=== PATIENT | female | born 1940 | race Caucasian/White ===

== ENCOUNTER → 2016-07-27 | Outpatient (CLI) | payer BC ==
[~2016-07-27] MED LIST: ASPCH81X PO; ATOR-22 PO; CALC600T14 PO; CHOL100027 PO; CHROMIUM PICOLINATE; CLON0.5T3 PO; COEN75CA PO; IBUP-1050 PO; MAGNTAB4 PO; METF1000 PO; MULT-506 PO; QUET1TAB30 PO
--- NOTE | 2016-07-27 11:53 | DIAGNOSTIC IMAGING REPORT ---
ULTRASOUND KIDNEYS AND BLADDER CLINICAL HISTORY: Chronic kidney disease. COMPARISON STUDY: Abdominal CT dated 03/13/2012. TECHNIQUE: Real-time, grayscale, and color flow sonography of the kidneys and bladder is performed. Images are reviewed in the transverse and longitudinal planes. FINDINGS: Kidneys: The kidneys are atrophic and echogenic consistent with medical renal disease. The right kidney measures 9.9 x 5.4 x 4.9 cm and the left kidney measures 10.0 x 5.6 x 4.5 cm. There is no hydronephrosis. No shadowing renal calculi are identified. There is no sonographic evidence of contour deforming renal mass lesion. No perinephric fluid is identified. Bladder: The bladder is normal in appearance. Bilateral ureteral jets were seen. IMPRESSION: 1. Findings are consistent with medical renal disease. There is no hydronephrosis. 2. The bladder is normal as imaged. Electronically signed by: Sean Branch M.D. 07/27/2016 11:51 AM Dictated Date/Time: 07/27/2016 11:50 AM
== END | disposition home or self-care (01) ==
LOC: C.ULTR 11:13
PROVIDERS: ATTEND Internal Medicine
DX: N18.9 Chronic kidney disease, unspecified (principal)

== ENCOUNTER → 2016-08-10 | Outpatient (CLI) | payer BC ==
[2016-08-10 15:58] LABS: THYROID STIMULATING HORMONE 1.19 uIu/ml (0.300-4.500)
[2016-08-10 16:22] LABS: RATIO 41.6 mcg/mg (0-30.0)
--- NOTE | 2016-08-17 08:55 | CODING QUERY MEDICAL NECESSITY ---
CQSUPPORTING DIAGNOSIS NEEDED A supporting diagnosis is required for the test/procedure performed on this patient in order for us to be reimbursed by the patient's insurance. Please provide a supporting diagnosis for the following test/procedure listed below next to the test name along with your signature. *If there is no additional diagnosis for this patient that would support the following test/procedure please document that below next to the test/procedure. Test(s)/Procedure(s) that require a supporting diagnosis: DOS 08/10/16 VITAMIN D VITAMIN B12 Provider Signature: Date: Thank you Joleen Renteria Health Information Management Once completed, please kindly fax back to [phone] For questions please call [phone]
== END | disposition home or self-care (01) ==
LOC: C.LAB1850 10:34
PROVIDERS: ATTEND Internal Medicine Endocrinology, Diabetes & Metabolism
DX: E11.8 Type 2 diabetes mellitus with unspecified complications (principal); M15.9 Polyosteoarthritis, unspecified; M85.80 Other specified disorders of bone density and structure, unspecified site; G62.9 Polyneuropathy, unspecified; R53.83 Other fatigue

== ENCOUNTER → 2016-09-06 | Outpatient (CLI) | payer BC ==
--- NOTE | 2016-09-06 13:17 | MAMMOGRAPHY REPORT ---
BILATERAL DIGITAL SCREENING MAMMOGRAM WITH CAD: 09/06/2016 CLINICAL HISTORY: Routine screening. Patient has no complaints. TECHNIQUE: Bilateral CC, MLO and repeat right CC views were obtained. Current study was also evaluat ed with a Computer Aided Detection (CAD) system. COMPARISON: Comparison is made to exams dated: 09/05/2015 mammogram, 08/30/2014 mammogram, 07/18/2013 ma mmogram, 08/29/2012 mammogram, 08/27/2011 mammogram, and 09/01/2010 mammogram - [facility] nter. BREAST COMPOSITION: The tissue of both breasts is almost entirely fatty. FINDINGS: There is stable focal asymmetry in the upper outer middle to posterior right breast, unchan ged on all available prior mammograms dating back to at least 08/31/2007, therefore likely benign. N o new suspicious mass, architectural distortion or cluster of microcalcifications is seen. IMPRESSION: ACR BI-RADS CATEGORY 1: NEGATIVE There is no mammographic evidence of malignancy. A 1 year screening mammogram is recommended. The pa tient will receive written notification of the results. Approximately 10% of breast cancers are not detected with mammography. A negative mammographic report should not delay biopsy if a clinically suggestive mass is present. Brunilda Whitt M.D. ay/:09/06/2016 08:33:39 Note Taker: Stephanie DEE)(M), [facility] letter sent: Normal 1/2 BI-RADS Code: ACR BI-RADS Category 1: Negative
== END | disposition home or self-care (01) ==
LOC: C.MAMM 07:31
PROVIDERS: ATTEND Obstetrics & Gynecology
DX: Z12.31 Encounter for screening mammogram for malignant neoplasm of breast (principal)

== ENCOUNTER → 2016-12-13 | Outpatient (CLI) | payer BC ==
[2016-12-13 11:13] LABS: ESTIMATED AVERAGE GLUCOSE 151 mg/dl; HA1C FLAG Normal (Normal)
[2016-12-13 11:14] LABS: ALT/SGPT 16 U/L (12-78); AST/SGOT 9 U/L (15-37); BLOOD UREA NITROGEN 35 mg/dl (7-18); BUN/CREATININE RATIO 26.9 (10-20); CALCIUM 9.7 mg/dl (8.5-10.1); CARBON DIOXIDE 27 mmol/L (21-32); CHLORIDE 104 mmol/L (98-107); CHOLESTEROL 161 mg/dl (0-200); GLUCOSE 137 mg/dl (70-99); POTASSIUM 3.9 mmol/L (3.5-5.1); SODIUM 139 mmol/L (136-145)
[2016-12-13 11:18] LABS: HDL CHOLESTEROL 79 mg/dl; LDL CHOLESTEROL CALCULATED 62 mg/dl; TRIGLYCERIDES 100 mg/dl (0-150); VERY LOW DENSITY LIPOPROT CALC 20 mg/dl
[2016-12-13 11:32] LABS: RATIO 62.3 mcg/mg (0-30.0)
== END | disposition home or self-care (01) ==
LOC: C.LAB1850 09:21
PROVIDERS: ATTEND Internal Medicine
DX: E78.5 Hyperlipidemia, unspecified (principal); E11.40 Type 2 diabetes mellitus with diabetic neuropathy, unspecified; N18.9 Chronic kidney disease, unspecified

== ENCOUNTER → 2017-03-08 | Outpatient (CLI) | payer BC ==
[2017-03-08 12:26] LABS: URINE APPEARANCE CLEAR (CLEAR); URINE BILIRUBIN NEG (NEG); URINE COLOR DK YELLOW; URINE NITRITE NEG (NEG); URINE SPECIFIC GRAVITY 1.023 (1.000-1.030); UROBILINOGEN NEG (NEG); ZZUR CULT IF INDIC CLEAN CATCH NO
[2017-03-08 12:27] LABS: MANUAL MICROSCOPIC REQUIRED? NO; REVIEW REQ? NO
[2017-03-08 12:35] LABS: BLOOD UREA NITROGEN 30 mg/dl (7-18); BUN/CREATININE RATIO 24.5 (10-20); CALCIUM 9.5 mg/dl (8.5-10.1); CARBON DIOXIDE 25 mmol/L (21-32); CHLORIDE 104 mmol/L (98-107); CREATININE 1.21 mg/dl (0.60-1.20); GLUCOSE 113 mg/dl (70-99); MAGNESIUM 1.6 mg/dl (1.8-2.4); PHOSPHORUS 3.3 mg/dl (2.5-4.9); SODIUM 136 mmol/L (136-145)
[2017-03-08 12:52] LABS: URINE PROTIEN/CREAT RATIO 0.2 (0-0.2); URINE TOTAL PROTEIN 41.5 mg/dl (0-11.9)
== END | disposition home or self-care (01) ==
LOC: C.LAB1850 09:55
PROVIDERS: ATTEND Internal Medicine Nephrology
DX: E11.40 Type 2 diabetes mellitus with diabetic neuropathy, unspecified (principal); E11.22 Type 2 diabetes mellitus with diabetic chronic kidney disease; N18.3 Chronic kidney disease, stage 3 (moderate)

== ENCOUNTER → 2017-07-19 | Outpatient (CLI) | payer BC ==
[2017-07-19 09:34] LABS: BASO % 0.1 %; BASO ABS # 0.01 K/uL (0-0.2); EOS % 0.9 %; EOS ABS # 0.08 K/uL (0-0.5); HEMATOCRIT 38.2 % (37-47); HEMOGLOBIN 13.5 g/dL (12.0-16.0); IG# 0.09 K/uL (0.00-0.02); LYMPH % 25.3 %; LYMPH ABS # 2.19 K/uL (1.2-3.4); MEAN CELL VOLUME 81.1 fL (80-100); MEAN CORPUSCULAR HEMOGLOBIN 28.7 pg (25-34); MEAN CORPUSCULAR HGB CONC 35.3 g/dl (32-36); MEAN PLATELET VOLUME 10.9 fL (7.4-10.4); MONO % 9.1 %; MONO ABS # 0.79 K/uL (0.11-0.59); NEUT % 63.6 %; PLATELET COUNT 360 K/uL (130-400); RED CELL DISTRIBUTION WIDTH CV 14.5 % (11.5-14.5); RED CELL DISTRIBUTION WIDTH SD 43.2 fL (36.4-46.3); WHITE BLOOD COUNT 8.66 K/uL (4.8-10.8)
[2017-07-19 09:44] LABS: HEMOGLOBIN A1C 7.7 % (4.5-5.6)
[2017-07-19 09:46] LABS: ALBUMIN 3.7 gm/dl (3.4-5.0); BLOOD UREA NITROGEN 46 mg/dl (7-18); CALCIUM 9.2 mg/dl (8.5-10.1); CARBON DIOXIDE 24 mmol/L (21-32); CHOLESTEROL 200 mg/dl (0-200); CREATININE 1.32 mg/dl (0.60-1.20); GLUCOSE 197 mg/dl (70-99); PHOSPHORUS 3.3 mg/dl (2.5-4.9); POTASSIUM 4.1 mmol/L (3.5-5.1); SODIUM 135 mmol/L (136-145)
[2017-07-19 09:48] LABS: LDL CHOLESTEROL CALCULATED 86 mg/dl
== END | disposition home or self-care (01) ==
LOC: C.LAB1850 07:47
PROVIDERS: ATTEND Internal Medicine Nephrology
DX: N18.3 Chronic kidney disease, stage 3 (moderate) (principal); E11.8 Type 2 diabetes mellitus with unspecified complications

== ENCOUNTER 2021-12-01 09:07 | Inpatient (IN) ==
--- NOTE | 2021-09-21 12:37 | PAT Medication Instructions ---
Medication Instructions Date of Service September 21, 2021 Home Medications Medication Instructions Recorded BD Ultra-Fine Lisa Pen Needle 32 #200 ea NS 05/14/20 gauge x 5/32" (pen needle, diabetic) flash glucose scanning reader #1 ea 09/08/21 (FreeStyle Tristin 2 [place]) flash glucose sensor (FreeStyle #2 ea 09/08/21 Tristin 2 Sensor) cholecalciferol (vitamin D3) 50 mcg (2,000 unit) tablet 4,000 units PO QAM aspirin 81 mg tablet,delayed release 81 mg PO QPM quetiapine 50 mg tablet 50 - 100 mg PO HS insulin glargine 100 unit/mL (3 mL) subcutaneous pen (Basaglar KwikPen U-100 Insulin) 34 unit SQ QPM mirabegron 25 mg tablet,extended release 24 hr 25 mg PO QPM acetaminophen 500 mg capsule 1,000 mg PO Q6H PRN aluminum hydrox-magnesium carb 160 mg-105 mg chewable tablet (Gaviscon Extra Strength) 2 tab PO BID PRN atorvastatin 40 mg tablet 40 mg PO QPM calcitriol 0.25 mcg capsule 0.25 mcg PO QPM cetirizine 10 mg tablet 10 mg PO HS diclofenac sodium 1 % topical gel 2 gm TOP BID PRN krill [id number]-[id number] 300 mg-90 mg-24 mg-50 mg capsule (krill oil) 1 cap PO QAM liraglutide 0.6 mg/0.1 mL (18 mg/3 mL) subcutaneous pen injector (Victoza 3-Crescencio) 1.8 mg SUBCUT QPM olmesartan 5 mg tablet 5 mg PO QPM STOP taking 2 weeks before surgery krill fud-jm-2-afh-vwi-oqfzwdecljcwv 300 mg-90 mg-24 mg-50 mg capsule (krill oil) 1 cap PO QAM STOP taking 24 hours before surgery diclofenac sodium 1 % topical gel 2 gm TOP BID PRN DO NOT take the morning of surgery cholecalciferol (vitamin D3) 50 mcg (2,000 unit) tablet 4,000 units PO QAM aluminum hydrox-magnesium carb 160 mg-105 mg chewable tablet (Gaviscon Extra Strength) 2 tab PO BID PRN Take morning of surgery With a small sip of water, OTHERWISE NOTHING TO EAT OR DRINK AFTER MIDNIGHT: acetaminophen 500 mg capsule 1,000 mg PO Q6H PRN (if needed) Take evening before surgery aspirin 81 mg tablet,delayed release 81 mg PO QPM (unless surgeon directed otherwise) quetiapine 50 mg tablet 50 - 100 mg PO HS insulin glargine 100 unit/mL (3 mL) subcutaneous pen (Basaglar KwikPen U-100 Insulin) 34 unit SQ QPM mirabegron 25 mg tablet,extended release 24 hr 25 mg PO QPM acetaminophen 500 mg capsule 1,000 mg PO Q6H PRN (if needed) aluminum hydrox-magnesium carb 160 mg-105 mg chewable tablet ([employer] [facility]) 2 tab PO BID PRN (if needed) atorvastatin 40 mg tablet 40 mg PO QPM calcitriol 0.25 mcg capsule 0.25 mcg PO QPM cetirizine 10 mg tablet 10 mg PO HS liraglutide 0.6 mg/0.1 mL (18 mg/3 mL) subcutaneous pen injector (Victoza 3-Crescencio) 1.8 mg SUBCUT QPM olmesartan 5 mg tablet 5 mg PO QPM Other Notes If you have any questions please call us at [phone] or [phone] or [phone] or [phone]
--- NOTE | 2021-09-23 11:05 | Anesthesiology Consultation ---
Date of Service September 23, 2021 Assessment & Plan (1) Encounter for pre-operative examination: - check BSG am DOS. - surgeon ordered medical clearance. - COVID screening: Per assessment on 09/23/2021: Travel screen negative, no known COVID-19 positive contacts or current COVID-19 related symptoms in past 2 weeks. Pt vaccinated. Surgeon arranging preop COVID testing, scheduled 10/02/2021. Awaiting results. Chart Review Chart Review: Pending: Refer to Additional Notes / Consult section and Patient seen in Pre Admission Testing Teaching & Discussion Pre-Anesthesia Teaching/Discussion Notes: Instructed NPO after midnight before surgery, except medications with 15 cc of water. Medication instructions provided according to the PAT guidelines. History Surgery Operation Date: 10/07/21 07:45 Proposed Procedures p L3-S1 Decompression and Fusion, Spinal Cord Monitoring - Peterson Sams, Height/Weight Height: 5 ft 3 in Weight: 96.8 kg Allergies Allergy/AdvReac Type Severity Reaction Status Date / Time celecoxib [From Celebrex] Allergy Severe GI bleeding Verified 09/21/21 10:24 pioglitazone Allergy Unknown UNKNOWN Verified 09/21/21 10:24 Sulfa (Sulfonamide Allergy Unknown RASH Verified 09/21/21 10:24 Antibiotics) lidocaine AdvReac Intermediate Back Verified 09/21/21 10:24 becomes sore procaine [From Novocain] AdvReac Intermediate back Verified 09/21/21 10:24 injection made back pain worse CONTRAST DYE Allergy Severe ANAPHYLAXIS Uncoded 09/21/21 10:24 MICTAL Allergy Unknown RASH Uncoded 09/21/21 10:24 Medications Home Medications Medication Instructions Recorded Confirmed Last Taken cholecalciferol (vitamin D3) 50 4,000 units PO QAM #60 tab 12/18/18 09/21/21 Unknown mcg (2,000 unit) tablet aspirin 81 mg tablet,delayed 81 mg PO QPM 01/22/20 09/21/21 Unknown release quetiapine 50 mg tablet 50 - 100 mg PO HS 05/03/20 09/21/21 Unknown BD Ultra-Fine Lisa Pen Needle 32 #200 ea NS 05/14/20 08/25/21 Unknown gauge x 5/32" (pen needle, diabetic) blood sugar diagnostic (OneTouch 12/22/20 08/25/21 Unknown Verio test strips) insulin glargine 100 unit/mL (3 34 unit SQ QPM ml 06/23/21 09/21/21 Unknown mL) subcutaneous pen (Basaglar KwikPen U-100 Insulin) mirabegron 25 mg tablet,extended 25 mg PO QPM tab 08/17/21 09/21/21 Unknown release 24 hr flash glucose scanning reader #1 ea 09/08/21 09/08/21 Unknown (FreeStyle Tristin 2 [place]) flash glucose sensor (FreeStyle #2 ea 09/08/21 09/08/21 Unknown Tristin 2 Sensor) acetaminophen 500 mg capsule 1,000 mg PO Q6H PRN 09/21/21 09/21/21 Unknown aluminum hydrox-magnesium carb 160 2 tab PO BID PRN 09/21/21 09/21/21 Unknown mg-105 mg chewable tablet (Gaviscon Extra Strength) atorvastatin 40 mg tablet 40 mg PO QPM 09/21/21 09/21/21 Unknown calcitriol 0.25 mcg capsule 0.25 mcg PO QPM 09/21/21 09/21/21 Unknown cetirizine 10 mg tablet 10 mg PO HS 09/21/21 09/21/21 Unknown diclofenac sodium 1 % topical gel 2 gm TOP BID PRN 09/21/21 09/21/21 Unknown krill 1 cap PO QAM 09/21/21 09/21/21 Unknown lfw-nr-2-alj-ncd-bqjnoohxftcrw 300 mg-90 mg-24 mg-50 mg capsule (krill oil) liraglutide 0.6 mg/0.1 mL (18 mg/3 1.8 mg SUBCUT QPM 09/21/21 09/21/21 Unknown mL) subcutaneous pen injector (Victoza 3-Crescencio) olmesartan 5 mg tablet 5 mg PO QPM 09/21/21 09/21/21 Unknown Past Medical History Medical History (Updated 09/23/21 @ 11:37 by Jenny Hines PA-C) Bipolar 1 disorder Chronic back pain Chronic interstitial cystitis Chronic kidney disease (CKD), stage III (moderate) following with [facility] 08/25/21 Degenerative disc disease Diabetes type 2, controlled IDDM Diabetic nephropathy associated with type 2 diabetes mellitus GERD (gastroesophageal reflux disease) controlled, stable per pt History of anesthesia reaction long time to awaken. no ventilator needed. Hyperlipidemia Hypertension controlled, stable per pt IBS (irritable bowel syndrome) pt denies L[place] Rheumatoid arthritis Spinal stenosis Patient denies h/o stroke, seizures, heart attack, heart failure, blood clots or blood transfusions. Exercise / Class Metabolic Activity II 4-5 Yardwork/Stairs/Walk up hill (ambulates with cane, SOB with 1 FOS d/t pain per pt otherwise denies SOB; denies chest discomfort) Past Family History Family History Mother Diabetes Breast cancer Father Myocardial infarction Coronary arteriosclerosis Sister Diabetes Uncle Skin cancer maternal Grandfather FHx: stroke Other Heart disease Denies family history of Colon cancer Ovarian cancer Prostate cancer Past Surgical History Surgical History H/O arthroscopy of left knee H/O laparoscopy exploratory History of ankle surgery ORIF right ankle History of cystoscopy History of esophagogastroduodenoscopy (EGD) S/P cataract surgery bilateral S/P colonoscopy 06/15/04, good for 10 years S/P epidural steroid injection "made the back pain worse" S/P repair of paraesophageal hernia Past Anesthesia History No Family Hx of Anesthesia Complications and Other (slow to wake up, denies re- intubation or unanticipated/extended hospitalization) History of PONV No Hx of PONV and No Hx of Motion Sickness Social History Smoking Status: Never smoker Do You Dip or Chew Tobacco: No Hx Alcohol Use: Yes Alcohol type: beer alcohol intake frequency: holidays/special occasions only Hx Substance Use: Yes (quit medical marijuana none since 2018) substance use type: marijuana Substance Use Type Other:: medical marijuana Last Used Substance Other:: 2019 Review of Systems Snoring, denies witnessed apneas. Patient denies chest pain, fever, chills, cough, wheezing, or palpitations. Physical Exam Vital Signs Vitals BP 126/80 P 72 TEMP 98.6 SP02 96% on RA RESP 17 Physical Full cervical extension range of motion without pain TMD 3.5 finger breaths Mallampati Score 3 Dentition: intact, several caps/crowns-none in front; denies missing, chipped or loose teeth, implants or bridges Lungs: normal respiratory effort. Clear throughout to auscultation, no adventitious breath sounds Cardiac: regular rate and rhythm, no murmurs noted Carotid arteries: negative bruit bilat Lab Results Anesthesia Preop Results Results Anesthesia Widget: WBC 6.95 K/uL (4.8-10.8) 09/23/21 Hgb 11.9 g/dL (12.0-16.0) L 09/23/21 Hct 37.1 % (37-47) 09/23/21 Plt 371 K/uL (130-400) 09/23/21 Na 141 mmol/L (136-145) 09/23/21 K 4.1 mmol/L (3.5-5.1) 09/23/21 Cl 113 mmol/L (98-107) H 09/23/21 CO2 21 mmol/L (21-32) 09/23/21 BUN 34 mg/dl (6-23) H 09/23/21 Creat 1.39 mg/dl (0.6-1.2) H 09/23/21 Glucose Level 177 mg/dl (70-99(Fasting)) H 09/23/21 PT 10.9 Seconds (9.0-12.0) 09/23/21 PTT 25.1 Seconds (21.0-31.0) 09/23/21 INR 1.0 (0.9-1.1) 09/23/21 HA1c 7.2 % (4.5-5.6) H 09/23/21 Urine Color Yellow 09/23/21 Urine Appearance Cloudy (Clear) A 09/23/21 Urine pH 5.0 (4.5-7.5) 09/23/21 Urine Specific [place] 1.032 (1.000-1.030) H 09/23/21 Urine Protein 2+ (Negative) H 09/23/21 Urine Glucose (UA) Negative (Negative) 09/23/21 Urine Ketones Trace (Negative) H 09/23/21 Urine Blood Negative (Negative) 09/23/21 Urine Nitrite Negative (Negative) 09/23/21 Urine Bilirubin Negative (Negative) 09/23/21 Urine Urobilinogen Negative (Negative) 09/23/21 Urine Leukocyte Esterase Trace (Negative) H 09/23/21 Urine WBC (Auto) 10-30 /hpf (0-5) H 09/23/21 Urine RBC (Auto) 0-4 /hpf (0-4) 09/23/21 Urine Hyaline Casts (Auto) 10-30 /lpf (0-5) H 09/23/21 Urine Epithelial Cells (Auto) >30 /lpf (0-5) H 09/23/21 Urine Bacteria (Auto) Negative (Negative) 09/23/21 Blood Type A Negative 09/23/21 Antibody Screen NEGATIVE 09/23/21 Testing Electrocardiogram Date: 09/23/21 NSR, rate 67 bpm Left anterior fascicular block Chest X-Ray Date: 09/23/21 No lines and tubes are seen. The cardiomediastinal silhouette is normal. The lungs are clear. No evidence of pleural effusion or pneumothorax. Degenerative changes are seen in the thoracic spine. IMPRESSION: No acute chest disease. Cervical Spine Date: 09/23/21 x-ray No fractures or subluxations are identified. Vertebral body heights and disc spaces are well maintained. The alignment is anatomic Prevertebral soft tissues are within normal limits. IMPRESSION: Degenerative changes without evidence of acute abnormality
[~2021-12-01 09:07] MED LIST changes: +ACETAMINOPHEN 500 MG TAB PO SCH; -ASPCH81X PO; -ATOR-22 PO; -CALC600T14 PO; -CHOL100027 PO; -CHROMIUM PICOLINATE; -CLON0.5T3 PO; -COEN75CA PO; +CeleBREX 200 MG CAP PO SCH; +GABAPENTIN 300 MG CAP PO SCH; -IBUP-1050 PO; +LR 15ML/HR IV SCH; -MAGNTAB4 PO; -METF1000 PO; -MULT-506 PO; -QUET1TAB30 PO; +ceFAZolin 2000MG 2,000 MG/15 ML SYR IV SCH
[2021-12-01] MEDS ORDERED: ROCURONIUM BROMIDE 10 MG/ML 5 ML VIAL IV ONE (10:01)
[2021-12-01] MEDS ORDERED: LIDOCAINE 2% 20 MG/ML 5 ML SYR IV ONE (10:01)
[2021-12-01] MEDS ORDERED: PROPOFOL IV EMULSION 10 MG/ML 20 ML VIAL IV ONE (10:01)
[2021-12-01] MEDS ORDERED: fentaNYL citrate 100 MCG/2 ML VIAL ONE (10:01)
[2021-12-01] MEDS ORDERED: MIDAZOLAM HCL 1 MG/ML 2ML VIAL ONE (10:01)
[2021-12-01] MEDS ORDERED: HYDROmorphone INJ 1 MG/ML SYRINGE IV PRN (10:08)
[2021-12-01] MEDS ORDERED: ATROPINE SULFATE 0.1 MG/ML 10ML SYR IV PRN (10:08)
[2021-12-01] MEDS ORDERED: ePHEDrine sulfate 50 MG/ML AMP IV PRN (10:08)
[2021-12-01] MEDS ORDERED: ONDANSETRON INJ 2 MG/ML 2 ML VIAL IV PRN ×2 (10:08→15:14)
--- NOTE | 2021-12-01 10:16 | Discharge Summary ---
Date of Service December 01, 2021 Principal Diagnosis Lumbar spinal stenosis with neurogenic claudication Discharge Data Allergies Allergy/AdvReac Type Severity Reaction Status Date / Time celecoxib [From Celebrex] Allergy Severe GI bleeding Verified 11/26/21 16:35 Iodinated Contrast Media Allergy Severe Anaphylaxis Verified 11/26/21 16:35 lamotrigine [From Lamictal] Allergy Intermediate Rash Verified 12/01/21 09:31 Sulfa (Sulfonamide Allergy Mild RASH Verified 11/26/21 16:35 Antibiotics) pioglitazone Allergy Unknown UNKNOWN Verified 11/26/21 16:35 lidocaine AdvReac Intermediate Back Verified 11/26/21 16:35 becomes sore procaine [From Novocain] AdvReac Intermediate back Verified 11/26/21 16:35 injection made back pain worse Procedures Performed Operation Date: 10/21/21 07:45 <No data on this case meets the specified criteria> Operation Date: 12/01/21 10:35 <No data on this case meets the specified criteria> Ordered Studies 12/01/21 10:35 FL lumbar spine 2-3V Routine Hospital Course (1) Neurogenic claudication due to lumbar spinal stenosis: Patient went multilevel lumbar decompression fusion tolerated this well was taken to orthopedic for possibly. Postop day 1 she was progressing slowly but did begin transfers she had difficulty with postop day #2 and 3 and 4. She had incident of left foot pain secondary to a strain. We did attempt to have her admitted to rehab but insurance would not allow this. Ultimately she was accepted at a local [facility]. Day of discharge strength is intact pain was controlled. Subsequently discharged to residential facility. Total Time Total Time Spent Total Time Spent (In Minutes): 20 minutes Discharge Plan Discharge Items Patient Disposition: Transfer Snf Fac Reason For Visit: Spinal Stenosis, Cervical Region Discharge Diagnosis: Lumbar spinal stenosis with neurogenic claudication Activity: As commented below Non-emergency contact: Primary Care Provider Call non-emergency contact if: you have any medication questions Follow-up/Referrals: Jerry Persaud MD [Primary Care Provider] - Diet: Regular Addtl Attending Provider Instructions: ACTIVITY RECOMMENDATIONS: SELF CARE INSTRUCTIONS AFTER THORACIC/LUMBAR FUSIONS 1. You may walk to your tolerance. It is good exercise for your legs and back. Expect some back and intermittent leg aches and pains. 2. You may perform "counter-top" level activities (make a sandwich, shelli with a project, etc.). 3. No bending or lifting of more than 10 pounds or back twisting of any nature (roll like a log when turning in bed). 4. You may ride in a car for 20-30 minutes at a time. No driving until after your first visit with your doctor. 5. Frequent changes of position and restricting sitting to 30 minutes at a time will help limit the amount of back spasms and stiffness you may experience. 6. You may discontinue the use of ambulatory aids (cane, crutches, etc.) once your strength and confidence allow. 7. You may plumbing assembler installer the shower and let water strike your incision when you arrive home at least once daily. Do not take a tub bath, sit in a hot tub or go into a swimming pool until after your first recheck in the office. SPECIAL CARE INSTRUCTIONS: VERY IMPORTANT TO READ AND REVIEW A. Your surgical incision has been closed with a cosmetic suture under the skin that will dissolve in about 6 weeks. In 14 days, you can use a pair of clean scissors and cut the suture that is left outside of the skin at the ends of your incision. 1. The small skin tapes can be removed 7 days after surgery if they have not fallen off by that point. 2. You may keep the wound open to air as much as possible to promote healing after post-op day number 5 unless told otherwise by your doctor. 3. If you think the wound looks like it is becoming infected (redness or worsening drainage) and/or you are experiencing fever, chill or worsening back pain and muscle spasms, contact the office so that we may evaluate you as soon as possible. B. Complications are uncommon, but please contact us if you have any signs or symptoms of: 1. wound infection (fever higher than 102.5 degrees F, redness, separation of wound, drainage, or increasing pain from the incision) 2. blood clots in legs (pain, swelling, redness and warmth in legs) 3. urinary tract infection (fever higher than 102.5 degrees F, burning upon urination or increased frequency of urination) 4. nerve problems (inability to walk on your toes or heels, numbness, loss of bowel or bladder control) 5. any other symptoms that concern you C. Please call the office at if you have any concerns or questions about your operation or recovery. D. No smoking! Smoking drastically decreases the chance of a solid fusion. E. Do not take any anti-inflammatory medications (Indocin, Advil, Motrin, Aspirin, Naprosyn, etc.) as these may inhibit the chance of a solid fusion. Tylenol is okay to take for pain. MANAGING PAIN AFTER SPINAL SURGERY 1. Narcotic medication is intended for short-term use and will be provided for surgical pain. Surgical pain usually lasts for a period of 4-6 weeks. Narcotic medication includes Percocet, Vicodin, Darvocet, Tylenol #3 or Lortab. 2. Longer-term pain is more appropriately treated with non-narcotic medication such as Tylenol ES. 3. Muscle spasm is not appropriately treated with narcotics. Muscle relaxers such as Soma, Flexeril or Skelaxin can be used along with Tylenol ES. 4. Remember that we all live with some "aches and pains". This is not unusual or uncommon after an injury or as we get older. a. Back pain is expected and may include muscle spasms for 4 to 6 weeks after surgery. The pain should gradually improve. If the pain worsens for no apparent reason, please contact the office. b. Intermittent leg pain may also be experienced and should not be concerned about unless it worsens for no apparent reason. If so, please contact the office. 5. We will provide appropriate medication within the normal guidelines of their prescribed use. We will also be very cautious and aware of potential abuse and extended duration of patients' medication needs. a. Pain medications are for your comfort and to assist with sleep and rest so that the tissue can heal. They are not provided in order to return to normal activity and should not be used through the day. To do so or worsening pain at night can result from ongoing tissue damage and development of tolerance to the prescribed medicine. 6. Please allow 2-3 days to process refills. Prescriptions will not be mailed but must be picked up at the office. FOLLOW UP VISIT: Keep your scheduled follow-up appointment. Any questions, please call the office at . Pending Studies at Discharge: No Stand-Alone Forms: My [facility] Skilled Items Patient informed of condition?: Yes DNR: No Discharge Level of Care: Acute rehab Communicable Disease: No Discharge Prognosis: Improving Lines: None Urinary Catheter: No Medications and DC Order Prescriptions: New tramadol 50 mg tablet 50 mg PO Q6H PRN (Reason: pain, moderate) Qty: 30 0RF oxycodone 5 mg tablet 5 mg PO Q6H PRN (Reason: pain, severe) Qty: 30 0RF Continued (DME) pen needle, diabetic [BD Ultra-Fine Lisa Pen Needle] 32 gauge x 5/32" needle See Rx Instructions .ROUTE .MEDSUPPLY Qty: 200 3RF Rx Instructions: Use 2 per day as directed insulin glargine [Basaglar KwikPen U-100 Insulin] 100 unit/mL (3 mL) insulin pen 20 unit SQ QPM Qty: 15 5RF cholecalciferol (vitamin D3) 2,000 unit tablet 4,000 units PO QAM Qty: 60 (DME) OneTouch Verio test strips Strip See Rx Instructions .Route Rx Instructions: Test blood sugar once daily insulin aspart (niacinamide) [Fiasp FlexTouch U-100 Insulin] 100 unit/mL (3 mL) insulin pen 1 unit subcut UD PRN (Reason: Hyperglycemia) 0RF aspirin 81 mg tablet,delayed release (DR/EC) 81 mg PO QPM (DME) FreeStyle Tristin 2 [place] Misc See Rx Instructions .MEDSUPPLY Qty: 1 0RF Rx Instructions: As directed (DME) FreeStyle Tristin 2 Sensor Kit See Rx Instructions .MEDSUPPLY Qty: 2 11RF Rx Instructions: As directed mirabegron 25 mg tablet extended release 24 hr 25 mg PO QPM quetiapine 50 mg tablet 50 - 100 mg PO HS calcitriol 0.25 mcg capsule 0.25 mcg PO QPM olmesartan 5 mg tablet 5 mg PO QPM diclofenac sodium 1 % gel 2 gm TOP BID PRN (Reason: Pain) Rx Instructions: apply to single elbow, wrist or hand; for hand includes palm/fingers/back of hand Victoza 3-Crescencio 0.6 mg/0.1 mL (18 mg/3 mL) pen injector 1.8 mg subcut QPM [id number]-kupqu-2-[id number]-hez-jeheix [krill oil] 159-66-80-50 mg capsule 1 cap PO QAM acetaminophen 500 mg Capsule 1,000 mg PO Q6H PRN (Reason: Pain) Gaviscon Extra Strength 160-105 mg Tablet,Chewable 2 tab PO BID PRN (Reason: Heartburn) cetirizine 10 mg Tablet 10 mg PO HS atorvastatin 40 mg tablet 20 mg PO QPM Discharge Orders: Discharge Order (Routine); Ordered 12/11/21 Ordered By: Peterson Sams Admission Data Admit Date/Time: 12/01/21 13:25 Attending Provider: Peterson Sams Admit Provider: Peterson Sams Primary Care Provider: Jerry Persaud Other Providers: Dudley Stark ; Sue Woods [facility] ; [facility] ; [place] ; [facility] Other Interventions: Discharge Summary Assessment (RN) Last Done: 12/11/21 09:45
--- NOTE | 2021-12-01 10:16 | History & Physical Bridge Note ---
Date of Service December 01, 2021 History & Physical Bridge Note I have examined the patient, reviewed the History & Physical and in the interval since the performance of the History & Physical I have noted the following changes of clinical significance: no changes noted
--- NOTE | 2021-12-01 10:17 | History & Physical Report ---
Date of Service December 01, 2021 Assessment & Plan (1) Neurogenic claudication due to lumbar spinal stenosis: Plan: Lumbar decompression and fusion L3-S1 History of Present Illness Chief Complaint: Back and leg pain Primary Care Provider: Jerry Persaud MD This is an 81-year-old female who presents with chronic persistent back and leg pain. Failed course of nonoperative care she is here for surgical invention. Allergies Allergy/AdvReac Type Severity Reaction Status Date / Time celecoxib [From Celebrex] Allergy Severe GI bleeding Verified 11/26/21 16:35 Iodinated Contrast Media Allergy Severe Anaphylaxis Verified 11/26/21 16:35 lamotrigine [From Lamictal] Allergy Intermediate Rash Verified 12/01/21 09:31 Sulfa (Sulfonamide Allergy Mild RASH Verified 11/26/21 16:35 Antibiotics) pioglitazone Allergy Unknown UNKNOWN Verified 11/26/21 16:35 lidocaine AdvReac Intermediate Back Verified 11/26/21 16:35 becomes sore procaine [From Novocain] AdvReac Intermediate back Verified 11/26/21 16:35 injection made back pain worse Home Medications Medication Instructions Recorded Confirmed Type cholecalciferol (vitamin D3) 50 4,000 units PO QAM #60 tabs 12/18/18 12/01/21 History mcg (2,000 unit) tablet aspirin 81 mg tablet,delayed 81 mg PO QPM 01/22/20 12/01/21 History release quetiapine 50 mg tablet 50 - 100 mg PO HS 05/03/20 12/01/21 History BD Ultra-Fine Lisa Pen Needle 32 #200 ea 05/14/20 10/16/21 Rx gauge x 5/32" (pen needle, diabetic) blood sugar diagnostic (OneTouch 12/22/20 10/16/21 History Verio test strips) insulin glargine 100 unit/mL (3 34 unit subcut QPM 06/23/21 12/01/21 History mL) subcutaneous pen (Basaglar KwikPen U-100 Insulin) mirabegron 25 mg tablet,extended 25 mg PO QPM 08/17/21 12/01/21 History release 24 hr flash glucose scanning reader #1 ea 09/08/21 10/16/21 Rx (FreeStyle Tristin 2 Drain) flash glucose sensor (FreeStyle #2 ea 09/08/21 10/16/21 Rx Tristin 2 Sensor kit) acetaminophen 500 mg capsule 1,000 mg PO Q6H PRN Pain 09/21/21 12/01/21 History aluminum hydrox-magnesium carb 160 2 tab PO BID PRN Heartburn 09/21/21 12/01/21 History mg-105 mg chewable tablet (Gaviscon Extra Strength) calcitriol 0.25 mcg capsule 0.25 mcg PO QPM 09/21/21 12/01/21 History cetirizine 10 mg tablet 10 mg PO HS 09/21/21 12/01/21 History diclofenac sodium 1 % topical gel 2 gm topical BID PRN Pain 09/21/21 12/01/21 History krill 1 cap PO QAM 09/21/21 12/01/21 History [id number] 300 mg-90 mg-24 mg-50 mg capsule (krill oil) liraglutide 0.6 mg/0.1 mL (18 mg/3 1.8 mg subcut QPM 09/21/21 12/01/21 History mL) subcutaneous pen injector (Victoza 3-Crescencio) olmesartan 5 mg tablet 5 mg PO QPM 09/21/21 12/01/21 History atorvastatin 40 mg tablet 20 mg PO QPM 10/16/21 12/01/21 History Past Med/Surg History Medical History (Updated 12/01/21 @ 10:17 by Peterson Sams DO) Bipolar 1 disorder Chronic back pain Chronic interstitial cystitis Chronic kidney disease (CKD), stage III (moderate) following with [place] neph[facility] 08/25/21 Degenerative disc disease Diabetes type 2, controlled IDDM Diabetic nephropathy associated with type 2 diabetes mellitus GERD (gastroesophageal reflux disease) controlled, stable per pt History of anesthesia reaction long time to awaken. no ventilator needed. Hyperlipidemia Hypertension controlled, stable per pt IBS (irritable bowel syndrome) pt denies Lentigo Rheumatoid arthritis Spinal stenosis Surgical History H/O arthroscopy of left knee H/O laparoscopy exploratory History of ankle surgery ORIF right ankle History of cystoscopy History of esophagogastroduodenoscopy (EGD) S/P cataract surgery bilateral S/P colonoscopy 06/15/04, good for 10 years S/P epidural steroid injection "made the back pain worse" S/P repair of paraesophageal hernia Family History Mother Diabetes Breast cancer Father Myocardial infarction Coronary arteriosclerosis Sister Diabetes Uncle Skin cancer maternal Grandfather FHx: stroke Other Heart disease Denies family history of Colon cancer Ovarian cancer Prostate cancer Social History Smoking Status: Never smoker Second Hand Exposure: No; Do You Dip or Chew Tobacco: No; Tobacco Cessation Education Requested by Patient: No Hx Alcohol Use: Yes Alcohol type: beer Hx Substance Use: No (hx of medical marijuana use (none since 2019)) Preferred Language: Cameroonian Communication Ability: Effective Visual Impairment: No Limitations Hearing Ability: Normal Dairy Grazer Required: No Beliefs That Will Affect Care: Worship Worship Beliefs: methodist and baptism and Spiritual marital status: Current Living Situation: Spouse current occupational status: retired current occupation: Therapist Other Information That Helps Us Care for You: No other: N/A Feels Safe at Home: Yes Safety Concerns: Feels Safe At This Time Childhood Exposure to Second-Hand Smoke: No Dental Care, Regularly: Yes Seatbelt Use: always Sunscreen Use: Yes Assistive Devices: Cane and Walker Physical Exam Physical Exam: Patient is alert and oriented Heart regular rhythm Lungs clear Results & Data Results & Data ([facility]) Vital Signs (Past 12 Hours) Vital Signs Temp Pulse Resp BP Pulse Ox O2 Del Method 12/01/21 09:41 36.9 C 77 20 173/98 H 97 Room Air 12/01/21 09:41 Room Air
[2021-12-01] MEDS ORDERED: BUPIVACAINE/EPINEPHRINE 0.25% 1:200,000 30 ML VIAL ONE (10:35)
[2021-12-01] MEDS ORDERED: ceFAZolin 330 MG/ML 1 GM VIAL ONE (10:36)
[2021-12-01] MEDS ORDERED: KETAMINE 50 MG/5 ML SYRINGE ONE (11:17)
[2021-12-01] MEDS ORDERED: GLYCOPYRROLATE 0.2 MG/ML VIAL ONE (11:55)
[2021-12-01] MEDS ORDERED: DEXAMETHASONE SOD INJ 4 MG/ML VIAL ONE (11:55)
[2021-12-01] MEDS ORDERED: NEOSTIGMINE METHYLSULFATE 1 MG/ML 10ML VIAL ONE (11:55)
[2021-12-01] MEDS ORDERED: ONDANSETRON INJ 2 MG/ML 2 ML VIAL ONE (11:55)
[2021-12-01] MEDS ORDERED: FLOSEAL HEMOSTATIC MATRIX 10ML TOP ONE (13:12)
--- NOTE | 2021-12-01 13:21 | Operative Report ---
Post Operative Report Pre & Post Diagnosis Operation Date: 10/21/21 07:45 <No data on this case meets the specified criteria> Operation Date: 12/01/21 10:35 Pre-Op Diagnosis: Neurogenic Claudication due to Lumbar Spinal Stenosis L3-S1 Post-Op Diagnosis: Neurogenic Claudication due to Lumbar Spinal Stenosis L3-S1 I identified the patient and participated in the time-out.: Yes Procedure Operation Date: 10/21/21 07:45 <No data on this case meets the specified criteria> Operation Date: 12/01/21 10:35 Actual Procedures #1 lumbar decompression with bilateral medial facetectomies and foraminotomies L2-L3, L3-L4, L4-5 and L5-S1. #2 posterior spinal fusion L3-S1. #3 placement p osterior segmental instrumentation L3-S1. #4 interbody fusion L4-5 L5-S1. #5 placement of Spira 11 x 26 mm cage at L4-L5 and L5-S1. #6 placement locally harvested morselized autograft in the posterior gutters. #7 placement of I factor model V toss in the interbody space and posterior gutters. Surgeon Peterson Sams, DO Reactor Technician Filomena Hoffmann Estimated Blood Loss 150 Findings See Below Patient is 5 foot 3 inches tall weighing over 96 kg with a BMI in excess of 37. The patient's body habitus did contribute to significant technical difficulty requiring her deepest retractors longus instruments in order to perform procedure. This had at least 50% increased operative time. Specimens None Indications This is a 81-year-old female well-known to me the presents with above-mentioned diagnosis after failing course of nonoperative care is here for surgical invention. Description of Procedure Patient was met with identified informed consent obtained. Patient was then taken to the operative suite underwent ablation placed in a prone position on the Devendra table atop the Nils frame. All bony prominences well-padded eyes inspected to ensure no external pressure placed upon the. This point the lumbar spine was prepped and draped in normal sterile fashion. Sharp dissection with assistance of Bovie cautery was performed down to and exposing the lamina transverse processes of L2-3 L4-L5 and the sacral ala bilaterally. From caudal to cephalad fashion complete laminectomy of L5 L4 L3 and L4 to was performed including bilateral medial facetectomies and foraminotomies addressing severe spinal stenosis. Pedicle screws were then placed in L3-L4-L5 and S1 levels bilaterally with assistance of fluoroscopy and appropriately sized brandin placed. By way of a transforaminal portion right complete discectomy of L5-S1 was performed endplates curetted to subcortical bleeding bone and a 11 x 26 mm spiral cage filled I factor tapped the position. Then proceeded L4-L5 and again by way of a transforaminal approach on the right complete discectomy performed endplates curetted to subcortically bone and 11 x 26 mm spiral cage filled I factor tapped in position. The rods were then compressed and locked in final position bilaterally. The transverse processes of L3-L4-L5 and sacral ala burre d to subcortical bleeding bone. I factor combined with V toss and locally harvested morselized autograft was placed in the posterior gutters. 15 round SELMA drain inserted. The incision was then closed with 1 Vicryl in the fascia 2-0 Vicryl subcutaneously and 4 Monocryl for final skin closure. Steri-Strip sterile dressings placed. Patient waken taken PACU stable condition. Please note spinal cord monitoring was utilized at the procedure no changes noted. Lastly Filomena Hoffmann was present throughout the entire procedure and all the patient positioning complex portions of the surgery and final skin closure. I attest to the content of the Intraoperative Record and any orders documented therein. Any exceptions are noted below.
[2021-12-01] MEDS: fentaNYL citrate 100 MCG/2 ML VIAL IV PRN ×4 (13:57→14:14)
--- NOTE | 2021-12-01 14:01 | Fluoroscopy Report ---
FL lumbar spine 2-3V CLINICAL HISTORY: L3-S1 DECOMPRESSION AND FUSION COMPARISON STUDY: None. FLUOROSCOPY TIME: 29 seconds. FINDINGS: 2 fluoroscopic spot images of the lumbar spine demonstrate posterior decompression and fusi on from L3 through S1 with pedicle screws and rods. There are disc spacers at L3-L4 and L4-5 which ap pear in good position. IMPRESSION: Fluoroscopic assistance provided for L3-S1 posterior decompression and fusion. ACT 112: Negative or not required by law. Electronically signed by: Jaswant Coyle M.D. 12/01/2021 2:00 PM
--- NOTE | 2021-12-01 14:11 | Anesthesiology Progress Note ---
Date of Service December 01, 2021 Anesthesia Post Procedure Vital Signs Vital Signs: Temp Pulse Pulse Resp BP Pulse Ox O2 Del Method 12/01/21 13:55 62 16 165/64 H 96 Oxymask 12/01/21 13:46 71 18 165/83 H 97 Oxymask 12/01/21 13:39 36.7 C 78 19 180/105 H 96 Oxymask 12/01/21 09:41 36.9 C 77 20 173/98 H 97 Room Air 12/01/21 09:41 Room Air O2 Flow Rate 12/01/21 13:55 5 12/01/21 13:46 5 12/01/21 13:39 5 12/01/21 09:41 12/01/21 09:41 Pain Intensity Back: Pain Intensity: 6 Transfer of Care Handoff Completed per policy Notes Mental Status: alert / awake / arousable and participated in evaluation Patient Amnestic to Procedure: Yes Nausea / Vomiting: adequately controlled Pain: adequately controlled Airway Patency, RR, SpO2: stable & adequate BP & HR: stable & adequate Hydration State: stable & adequate Anesthetic Complications: no major complications apparent and Pt Satisfied with anesthetic care
[2021-12-01] MEDS ORDERED: PHARMACY GLYCEMIC MGMT CONSULT PRN (15:14)
[2021-12-01] MEDS ORDERED: SOD PHOSPHATE/SOD BIPHOSPHATE ENEMA 132 ML BTL PR PRN (15:14)
[2021-12-01] MEDS ORDERED: ACETAMINOPHEN 1,000 MG/100 ML VIAL IV PRN (15:14)
[2021-12-01] MEDS ORDERED: LORazepam 0.5 MG in SYRINGE 0.25 ML IV PRN (15:14)
[2021-12-01] MEDS ORDERED: FAMOTIDINE 20 MG TAB PO PRN (15:14)
[2021-12-01] MEDS ORDERED: PROMETHAZINE HCL 12.5 MG in SODIUM CHLORIDE 0.9% 50 ML IV PRN (15:14)
[2021-12-01] MEDS ORDERED: LORazepam 0.5 MG TAB PO PRN (15:14)
[2021-12-01] MEDS ORDERED: MAGNESIUM HYDROXIDE SUSP 30 ML UDC PO PRN (15:14)
[2021-12-01] MEDS ORDERED: bisacodyL 10 MG SUPP PR PRN (15:14)
[2021-12-01] MEDS ORDERED: HYDROmorphone INJ 0.5 MG/0.5 ML SYR IV PRN (15:14)
[2021-12-01] MEDS ORDERED: hydrOXYzine HCl 25 MG TAB PO PRN (15:14)
[2021-12-01] MEDS ORDERED: METOCLOPRAMIDE HCL INJ 5 MG/ML 2 ML VIAL IV PRN (15:14)
[2021-12-01] MEDS ORDERED: diphenhydrAMINE Capsule 25 MG CAP PO PRN (15:14)
[2021-12-01] MEDS ORDERED: NALOXONE HCL 0.4 MG/1 ML VIAL/CARP IV PRN (15:14)
[2021-12-01] MEDS ORDERED: traMADol HCL 50 MG TABLET PO PRN (15:14)
[2021-12-01] MEDS ORDERED: ONDANSETRON 4 MG OD TAB PO PRN (15:14)
[2021-12-01] MEDS: SODIUM CHLORIDE 0.9% 1000ML 1,000 ML IV SCH (15:24)
--- NOTE | 2021-12-01 15:42 | Consultation ---
Date of Consultation December 01, 2021 Assessment & Plan (1) Neurogenic claudication due to lumbar spinal stenosis: s/p lumbar decompression-fusion procedure by Dr Sams today. details - #1 lumbar decompression with bilateral medial facetectomies and foraminotomies L2-L3, L3-L4, L4-5 and L5-S1. #2 posterior spinal fusion L3-S1. #3 placement posterior segmental instrumentation L3-S1. #4 interbody fusion L4-5 L5-S1. #5 placement of Spira 11 x 26 mm cage at L4-L5 and L5-S1. #6 placement locally harvested morselized autograft in the posterior gutters. #7 placement of I factor model V toss in the interbody space and posterior gutters. EBL ~150cc per the op note. Defer pain management, IV fluids, disposition to Dr Sams's team. (2) Hyperlipidemia: continue lipitor 20mg daily (3) Hypertension: would HOLD ARB until AM labs return tomorrow post-op BPs are stable at this time, however (4) Type 2 diabetes mellitus, with long-term current use of insulin: primary orthopedic team has consulted the Pharmacy glycemic team for management defer Rx to them a1c noted from 09/2021 (5) Bipolar 1 disorder: cont seroquel nightly appears to be under control at this time (6) Chronic kidney disease (CKD), stage III (moderate): baseline Creatinine is 1.3 to 1.4 BMP in am for stability hold ARB until that time (7) Chronic interstitial cystitis: cont mirabegron daily (8) Rheumatoid arthritis: listed per the chart, but it does not appear she is on any chronic meds for such will clarify the diagnosis with patient during my next visit with her Plan DVT proph - SCDS; chemical means contraindicated due to spinal surgery Mild abd bloating/discomfort - serial exams, watch for development of ileus. updated at bedside. Thank you for this consult. Will follow with you. History of Present Illness Requesting Physician: Rony Sams DO Reason for Consultation: post-op medical management Attending Physician: Peterson Sams DO History of Present Illness 81yo female with history of bipolar disorder, T2DM on complex insulin regimen, hyperlipidemia, and chronic low back pain for at least 1 year presented today for elective lumbar decompression/fusion procedure by Dr Sams. I saw her post-op on the orthopedic floor and she was resting comfortably except for c/o dry mouth, back pain, and mild abdominal discomfort. She denies having had any GI symptoms prior to her operation. Denies any current nausea or emesis. Denies LE paresthesias. She does request pain meds for the back. Patient reports most BSGs at home have been <200 of late. She follows with the [facility] for her DM. Allergies Allergy/AdvReac Type Severity Reaction Status Date / Time celecoxib [From Celebrex] Allergy Severe GI bleeding Verified 11/26/21 16:35 Iodinated Contrast Media Allergy Severe Anaphylaxis Verified 11/26/21 16:35 lamotrigine [From Lamictal] Allergy Intermediate Rash Verified 12/01/21 09:31 Sulfa (Sulfonamide Allergy Mild RASH Verified 11/26/21 16:35 Antibiotics) pioglitazone Allergy Unknown UNKNOWN Verified 11/26/21 16:35 lidocaine AdvReac Intermediate Back Verified 11/26/21 16:35 becomes sore procaine [From Novocain] AdvReac Intermediate back Verified 11/26/21 16:35 injection made back pain worse Home Medications Medication Instructions Recorded Confirmed Type cholecalciferol (vitamin D3) 50 4,000 units PO QAM #60 tabs 12/18/18 12/01/21 History mcg (2,000 unit) tablet aspirin 81 mg tablet,delayed 81 mg PO QPM 01/22/20 12/01/21 History release quetiapine 50 mg tablet 50 - 100 mg PO HS 05/03/20 12/01/21 History BD Ultra-Fine Lisa Pen Needle 32 #200 ea 05/14/20 10/16/21 Rx gauge x 5/32" (pen needle, diabetic) blood sugar diagnostic (OneTouch 12/22/20 10/16/21 History Verio test strips) insulin glargine 100 unit/mL (3 34 unit subcut QPM 06/23/21 12/01/21 History mL) subcutaneous pen (Basaglar KwikPen U-100 Insulin) mirabegron 25 mg tablet,extended 25 mg PO QPM 08/17/21 12/01/21 History release 24 hr flash glucose scanning reader #1 ea 09/08/21 10/16/21 Rx (FreeStyle Tristin 2 [place]) flash glucose sensor (FreeStyle #2 ea 09/08/21 10/16/21 Rx Tristin 2 Sensor kit) acetaminophen 500 mg capsule 1,000 mg PO Q6H PRN Pain 09/21/21 12/01/21 History aluminum hydrox-magnesium carb 160 2 tab PO BID PRN Heartburn 09/21/21 12/01/21 History mg-105 mg chewable tablet (Gaviscon Extra Strength) calcitriol 0.25 mcg capsule 0.25 mcg PO QPM 09/21/21 12/01/21 History cetirizine 10 mg tablet 10 mg PO HS 09/21/21 12/01/21 History diclofenac sodium 1 % topical gel 2 gm topical BID PRN Pain 09/21/21 12/01/21 History krill 1 cap PO QAM 09/21/21 12/01/21 History igz-zz-4-zod-qle-reikhamfjmsuq 300 mg-90 mg-24 mg-50 mg capsule (krill oil) liraglutide 0.6 mg/0.1 mL (18 mg/3 1.8 mg subcut QPM 09/21/21 12/01/21 History mL) subcutaneous pen injector (CloSys 3-Crescencio) olmesartan 5 mg tablet 5 mg PO QPM 09/21/21 12/01/21 History atorvastatin 40 mg tablet 20 mg PO QPM 10/16/21 12/01/21 History Patient History Medical History Bipolar 1 disorder Chronic back pain Chronic interstitial cystitis Chronic kidney disease (CKD), stage III (moderate) following with [facility] nephrology 08/25/21 Degenerative disc disease Diabetes type 2, controlled IDDM Diabetic nephropathy associated with type 2 diabetes mellitus GERD (gastroesophageal reflux disease) controlled, stable per pt History of anesthesia reaction long time to awaken. no ventilator needed. Hyperlipidemia Hypertension controlled, stable per pt IBS (irritable bowel syndrome) pt denies Lentigo Rheumatoid arthritis Spinal stenosis Surgical History H/O arthroscopy of left knee H/O laparoscopy exploratory History of ankle surgery ORIF right ankle History of cystoscopy History of esophagogastroduodenoscopy (EGD) S/P cataract surgery bilateral S/P colonoscopy 06/15/04, good for 10 years S/P epidural steroid injection "made the back pain worse" S/P repair of paraesophageal hernia Family History Mother Diabetes Breast cancer Father Myocardial infarction Coronary arteriosclerosis Sister Diabetes Uncle Skin cancer maternal Grandfather FHx: stroke Other Heart disease Denies family history of Colon cancer Ovarian cancer Prostate cancer Social History (Updated 12/01/21 @ 16:30 by Jerad Winters) Smoking Status: Never smoker Second Hand Exposure: No; Do You Dip or Chew Tobacco: No; Tobacco Cessation Education Requested by Patient: No Hx Alcohol Use: Yes Alcohol type: beer Hx Substance Use: No (hx of medical marijuana use (none since 2019)) Preferred Language: Thai Communication Ability: Effective Visual Impairment: No Limitations Hearing Ability: Normal Deputy Sheriff K9 Handler Required: No Beliefs That Will Affect Care: Yazidism Yazidism Beliefs: congregational and methodist and Spiritual marital status: Current Living Situation: Spouse current occupational status: retired current occupation: Therapist; previously was a teacher How many Children do You have: 2 Other Information That Helps Us Care for You: No other: N/A Feels Safe at Home: Yes Safety Concerns: Feels Safe At This Time Childhood Exposure to Second-Hand Smoke: No Dental Care, Regularly: Yes Seatbelt Use: always Sunscreen Use: Yes Assistive Devices: Cane and Walker Review of Systems Review of Systems: gen - no recent fevers, chills or appetite loss eyes - no recent visual change HENT - c/o dry mouth (post-surgery); no recent dysphagia CV - no chest pain here or at home pulm - no cough, no dyspnea, no MARTINES GI - abd bloating/discomfort (post-op only); no nausea, emesis; no chronic blood in stool - chronic complaints/"bladder issues" neuro - denies paresthesias of legs; no headache psych - chronic depression/anxiety due to bipolar skin - no rashes endo - DM has been under good control Physical Exam Physical Exam: gen - obese, NAD, c/o back pain, c/o dry mouth eyes - PERRL, 1-2mm b/l HENT - MM very dry, no lesions neck - no JVD, no masses heart - RRR, s1 s2, no murmur lungs - CTA b/l abd - mildly distended, BS+ but decreased; NT; no HSM ext - no edema, pulses 2+ b/l neuro - strength 5/5 x 4 exts; upper ext DTRs 2+ b/l skin - no rash psych - a/o x 3 lymph - no cervical lymph nodes b/l Results & Data ([facility]) Vital Signs (Past 12 Hours) Vital Signs Temp Pulse Pulse Resp BP Pulse Ox O2 Del Method 12/01/21 14:50 57 L 14 133/63 95 Nasal Cannula 12/01/21 14:35 36.1 C L 59 L 14 156/54 H 96 Nasal Cannula 12/01/21 14:25 53 L 13 153/61 H 93 Nasal Cannula 12/01/21 14:15 55 L 12 168/65 H 98 Nasal Cannula 12/01/21 14:05 64 14 173/65 H 96 Oxymask 12/01/21 13:55 62 16 165/64 H 96 Oxymask 12/01/21 13:46 71 18 165/83 H 97 Oxymask 12/01/21 13:39 36.7 C 78 19 180/105 H 96 Oxymask 12/01/21 09:41 36.9 C 77 20 173/98 H 97 Room Air 12/01/21 09:41 Room Air O2 Flow Rate 12/01/21 14:50 2 12/01/21 14:35 2 12/01/21 14:25 2 12/01/21 14:15 2 12/01/21 14:05 5 12/01/21 13:55 5 12/01/21 13:46 5 12/01/21 13:39 5 12/01/21 09:41 12/01/21 09:41 Laboratory Results Laboratory Results - last 24 hr 12/01/21 12/01/21 12/01/21 09:25 09:26 09:48 POC Glucose 127 H SARS-CoV-2, RNA, NAAT NEGATIVE Blood Type A Negative Antibody Screen NEGATIVE Crossmatch See Detail 12/01/21 13:43 POC Glucose 159 H SARS-CoV-2, RNA, NAAT Blood Type Antibody Screen Crossmatch Diagnostic Findings pre-op labs 09/2021 noted; Cr 1.3; Hba1c 7.2% dobutamine stress echo EF 65-70%; indeterminate/nondiagnostic stress portion however due to poor image quality PG Care Time/CCT Total # of Minutes Spent Total Time Spent with Patient: Total time spent is greater than 50% in coordination of care (as documented) at patient's floor/unit and/or counseling patient: Coding Level of Care Code 94410 Subseq Hosp Care Lvl 3 Diagnoses Neurogenic claudication due to lumbar spinal stenosis M48.062 Hyperlipidemia E78.5 Hypertension I10 Type 2 diabetes mellitus, with long-term current use of insulin E11.9; Z79.4 Bipolar 1 disorder F31.9 Chronic kidney disease (CKD), stage III (moderate) N18.3 Chronic interstitial cystitis N30.10 Rheumatoid arthritis M06.9
[2021-12-01] MEDS: HYDROmorphone INJ 1 MG/ML SYRINGE IV PRN ×2 (15:43→19:47)
[2021-12-01] MEDS ORDERED: GLUCAGON FOR INJ 1 MG VIAL IM PRN (16:30)
[2021-12-01] MEDS ORDERED: GLUCOSE 10 TAB/TUBE PO PRN (16:30)
[2021-12-01] MEDS ORDERED: CARBOHYDRATES FOR HYPOGLYCEMIA PO PRN (16:30)
[2021-12-01] MEDS ORDERED: GLUCOSE 40% GEL 15 GM TUBE PO PRN (16:30)
[2021-12-01] MEDS ORDERED: DEXTROSE 50% 50 ML SYRINGE IV PRN (16:30)
[2021-12-01] MEDS: INSULIN ASPART PER UNIT SC SCH ×2 (17:49→22:07)
[2021-12-01] MEDS: ceFAZolin 2000MG 2,000 MG/15 ML SYR IV SCH (19:48)
[2021-12-01] MEDS: ATORVASTATIN 20 MG TAB PO SCH (19:52)
[2021-12-01] MEDS: ASPIRIN 81 MG ECTAB PO SCH (19:52)
[2021-12-01] MEDS: MIRABEGRON ER 25 MG TAB PO SCH (19:54)
[2021-12-01] MEDS: DOCUSATE SODIUM/SENNA 50/8.6MG TAB PO SCH (19:54)
[2021-12-01] MEDS: CETIRIZINE HCL 10 MG TABLET PO SCH (19:54)
[2021-12-01] MEDS ORDERED: LANTUS PER UNIT CHARGE SQ SCH (21:30)
[2021-12-01] MEDS: oxyCODONE HCL IR 5 MG TAB (IMMEDIATE RELEASE) PO PRN (23:39)
[2021-12-02] MEDS: SODIUM CHLORIDE 0.9% 1000ML 1,000 ML IV SCH (01:02)
[2021-12-02] MEDS ORDERED: COUGH DROP (SUGAR FREE) LOZ 24 LOZ/1 BOX BUCCAL PRN (01:11)
[2021-12-02] MEDS: oxyCODONE HCL IR 5 MG TAB (IMMEDIATE RELEASE) PO PRN ×3 (03:58→19:54)
[2021-12-02] MEDS: ceFAZolin 2000MG 2,000 MG/15 ML SYR IV SCH (03:59)
[2021-12-02] MEDS: POLYETHYLENE (MIRALAX) 17 GM PACK PO SCH ×4 (06:41→23:48)
[2021-12-02] MEDS: HYDROmorphone INJ 1 MG/ML SYRINGE IV PRN ×3 (06:41→23:48)
[2021-12-02] MEDS: dexAMETHasone 6 MG in SYRINGE 0 ML IV SCH (07:37)
[2021-12-02] MEDS: CHOLECALCIFEROL 1,000 UNITS 25 MCG TAB PO SCH (07:37)
--- NOTE | 2021-12-02 07:47 | Hospitalist Progress Note ---
Date of Service December 02, 2021 Assessment & Plan (1) Neurogenic claudication due to lumbar spinal stenosis: Plan: POD#1 s/p lumbar decompression-fusion procedure by Dr Sams 12/01 #1 lumbar decompression with bilateral medial facetectomies and foraminotomies L2-L3, L3-L4, L4-5 and L5-S1. #2 posterior spinal fusion L3-S1. #3 placement posterior segmental instrumentation L3-S1. #4 interbody fusion L4-5 L5-S1. #5 placement of Spira 11 x 26 mm cage at L4-L5 and L5-S1. #6 placement locally harvested morselized autograft in the posterior gutters. #7 placement of I factor model V toss in the interbody space and posterior gutters. EBL ~150cc per the op note., SELMA output 370cc H/h 11.1--> 10.1, acute blood loss anemia from surgery/dilutional from IVF will check iron studies/b12 w/ am labs given preop hgb 11.1, general pallor/fatigue Additional 500cc NSS for this morning to be provided for slightly dry mm, Cr 1.57 Added incentive spirometer, also given dose of Claritin for this morning (using zyzal and zrytec at home). Denies asthma, but has some end expiratory wheezing and issues with allergies lately, ?underlying reactive airway disease. Will also order albuterol HFA x 1 and monitor, Prn following Pain control/bowel regimen/antiemetics per primary service DVT proph -- edgar mario, SCDs in place Defer pain management, IV fluids, disposition to Dr Sams's team. (2) Hyperlipidemia: Plan: continue lipitor 20mg daily (3) Hypertension: Plan: BP stable but borderline, 107/64 holding ARB, Cr 1.57, 500cc NSS ordered Monitor response, possibly resume olmesartan/equivalent in AM (4) Type 2 diabetes mellitus, with long-term current use of insulin: Plan: primary orthopedic team has consulted the Pharmacy glycemic team for management defer Rx to them a1c noted from 09/2021 at 7.2 BSGs elevated to 342 this afternoon at lunch time reported drinking a regular soda pharmacy on consult, 9 units regular insulin to be provided x 1 now monitor BSGs (5) Bipolar 1 disorder: Plan: Cont Seroquel nightly appears to be under control at this time although does have some pressured speech (6) Chronic kidney disease (CKD), stage III (moderate): Plan: baseline Creatinine is 1.3 to 1.4 holding arb for today, Cr 1.57 (although appears baseline actually 1.3-1.6 per nephro notes) also with K 5.1 of note had been taking lots of NSAIDs in the past for arthritis symptoms 500cc NSS for today BMP in AM (7) Chronic interstitial cystitis: Plan: cont mirabegron daily also with "lower ovarian cramping", following BULKER (8) Rheumatoid arthritis: Plan: listed per the chart, but it does not appear she is on any chronic meds for such will clarify the diagnosis with patient during my next visit with her notes from Dr Meyers Jan 2021 in system with patient with inflammatory arthritis patient states had tried methotrexate in past, developed pneumonia has flares about 2x a year reported that she follows with PCP Dr Persaud and gets Medrol dose pack with improvement Plan DVT proph - SCDS; chemical means contraindicated due to spinal surgery Mild abd bloating/discomfort - serial exams, watch for development of ileus --> does have + BS, although hypoactive. Denies passing gas/BM but reports chroinc lower abdomial pain from "ovaries" although hx interstitial cystitis Will check KUB to eval stool burden updated at bedside 12/02 Thank you for this consult. Will follow with you. Admission and Anticipated Discharge Date Admission Date: December 01, 2021 Supervising Physician Co-Signing Physician Notes Attending Attestation - Chart reviewed, care plan d/w DEO Mathew. I agree w/ the nix components of her documentation. Jerad Winters MD Subjective evaluated this afternoon, sitting up in chair waiting for lunch so she can get back into bed medicated for back pain, 01/11 but hoping for improvement over next 24 hours. She states panting when in pain. Asked about any hx asthma, she states her and have been having issues with allergies and she typically takes Zyzal in the morning and zyrtec at night. upset at her brother in law as he took her to [facility] for illness and she's been worried about him. per discussion with Dr Sams, likely for some rehab. She would like to avoid this, had bad experience in past with [facility] but she is willing to try and open her mind that because prior bad experience doesn't mean current one would be. Will see how she does over next 24-48 hours. BSG elevated currently 342, slightly shaky and thought symptoms of low blood sugar but she states she drank a regular soda this morning and knows she shouldn't have had that. Insulin to be given. Discussed hx RA, she states she saw a "black lady" at [facility] who put her on MTX but she developed a pneumonia and the provider never checked on her after. She follows with [facility], but doesn't care for the provider. She states about twice a year her joints will lock up in her hands and Dr Persaud will send her in a medrol dose pack, occurs approximately twice a years. Asked RN to also provide incentive spirometer. Not passing much gas, no BM. States having some lower abdominal cramping due to ovarians and has a good BULKER telling her to work on kegel exercises to bring these back up? Review of Systems Review of Systems: All systems reviewed & are unremarkable except as noted in HPI & below Physical Exam Physical Exam: General: WD/WN obese female sitting up in chair, NAD upon entry but complaints of back pain HEENT: eyes anicteric, mm slightly dry Resp: diminished throughout, end expiratory wheezing, no rales, on room air SpO2 92% CV: RRR, no m/r/g, no edema/calf tenderness GI: +slightly distended, but soft, nontender, slightly hypoactive BS, no guarding or rigidity MSK/Neuro: strength 5/5 throughout however pain with movement. dressing c/d/i, tender to palpation, SELMA drain with scant bloody drainage : gustafson draining clear yellow urine Psych: AOx3, anxious appearing talking about her , slightly pressured speech (hx bipolar) Skin: no obvious rashes Results & Data Results & Data ([facility]) Vital Signs (Past 12 Hours) Vital Signs Temp Pulse Resp BP Pulse Ox O2 Del Method 12/02/21 07:24 36.8 C 64 18 107/64 98 Room Air 12/02/21 03:54 36.8 C 67 20 103/58 L 96 Room Air 12/01/21 22:34 36.7 C 68 18 100/63 97 Room Air 12/01/21 19:49 85 20 112/70 98 Room Air Laboratory Results 12/02/21 12/02/21 12/02/21 Range/Units 11:57 08:28 07:35 WBC (4.8-10.8) K/ul RBC (3.93-5.22) M/uL Hgb (12.0-16.0) g/dl Hct (34.1-44.9) % MCV (80.0-100.0) fL MCH (25.0-34.0) pg MCHC (32.0-36.0) g/dL RDW Std Deviation (36.4-46.3) fL RDW Coeff of Sam (11.5-14.5) % Plt Count (130-400) K/uL MPV (9.4-12.3) fL Immature Gran % (Auto) % Neut % (Auto) % Lymph % (Auto) % Stanly % (Auto) % Eos % (Auto) % Baso % (Auto) % Neut # (Auto) (1.4-6.5) K/uL Lymph # (Auto) (1.2-3.4) K/uL Stanly # (Auto) (0.24-0.82) K/uL Eos # (Auto) (0-0.50) K/uL Baso # (Auto) (0-0.2) K/uL Immature Gran # (Auto) (0.00-0.02) K/uL Sodium 138 (136-145) mmol/L Potassium 5.1 (3.5-5.1) mmol/L Chloride 109 H (98-107) mmol/L Carbon Dioxide 24 (21-32) mmol/L Anion Gap 5 (3-11) BUN 37 H (6-23) mg/dl Creatinine 1.57 H (0.6-1.2) mg/dl Est Cr Clr Drug Dosing 31.6 ml/min Est GFR ( Amer) 35.7 ml/min Est GFR (Non-Af Amer) 30.8 ml/min BUN/Creatinine Ratio 23.6 H (10-20) Glucose 184 H (70-99(Fasting)) mg/dl POC Glucose 342 H* 188 H (70-99) mg/dl Calcium 8.1 L (8.5-10.1) mg/dl Magnesium 1.9 (1.7-2.4) mg/dl 12/02/21 12/01/21 12/01/21 Range/Units 07:35 21:47 16:58 WBC 11.52 H (4.8-10.8) K/ul RBC 3.44 L (3.93-5.22) M/uL Hgb 10.1 L (12.0-16.0) g/dl Hct 30.9 L (34.1-44.9) % MCV 89.8 (80.0-100.0) fL MCH 29.4 (25.0-34.0) pg MCHC 32.7 (32.0-36.0) g/dL RDW Std Deviation 48.9 H (36.4-46.3) fL RDW Coeff of Sam 15.0 H (11.5-14.5) % Plt Count 268 (130-400) K/uL MPV 11.0 (9.4-12.3) fL Immature Gran % (Auto) 0.5 % Neut % (Auto) 81.9 % Lymph % (Auto) 7.8 % Stanly % (Auto) 9.8 % Eos % (Auto) 0.0 % Baso % (Auto) 0.0 % Neut # (Auto) 9.43 H (1.4-6.5) K/uL Lymph # (Auto) 0.90 L (1.2-3.4) K/uL Stanly # (Auto) 1.13 H (0.24-0.82) K/uL Eos # (Auto) 0.00 (0-0.50) K/uL Baso # (Auto) 0.00 (0-0.2) K/uL Immature Gran # (Auto) 0.06 H (0.00-0.02) K/uL Sodium (136-145) mmol/L Potassium (3.5-5.1) mmol/L Chloride (98-107) mmol/L Carbon Dioxide (21-32) mmol/L Anion Gap (3-11) BUN (6-23) mg/dl Creatinine (0.6-1.2) mg/dl Est Cr Clr Drug Dosing ml/min Est GFR ( Amer) ml/min Est GFR (Non-Af Amer) ml/min BUN/Creatinine Ratio (10-20) Glucose (70-99(Fasting)) mg/dl POC Glucose 169 H 169 H (70-99) mg/dl Calcium (8.5-10.1) mg/dl Magnesium (1.7-2.4) mg/dl 12/01/21 Range/Units 13:43 WBC (4.8-10.8) K/ul RBC (3.93-5.22) M/uL Hgb (12.0-16.0) g/dl Hct (34.1-44.9) % MCV (80.0-100.0) fL MCH (25.0-34.0) pg MCHC (32.0-36.0) g/dL RDW Std Deviation (36.4-46.3) fL RDW Coeff of Sam (11.5-14.5) % Plt Count (130-400) K/uL MPV (9.4-12.3) fL Immature Gran % (Auto) % Neut % (Auto) % Lymph % (Auto) % Stanly % (Auto) % Eos % (Auto) % Baso % (Auto) % Neut # (Auto) (1.4-6.5) K/uL Lymph # (Auto) (1.2-3.4) K/uL Stanly # (Auto) (0.24-0.82) K/uL Eos # (Auto) (0-0.50) K/uL Baso # (Auto) (0-0.2) K/uL Immature Gran # (Auto) (0.00-0.02) K/uL Sodium (136-145) mmol/L Potassium (3.5-5.1) mmol/L Chloride (98-107) mmol/L Carbon Dioxide (21-32) mmol/L Anion Gap (3-11) BUN (6-23) mg/dl Creatinine (0.6-1.2) mg/dl Est Cr Clr Drug Dosing ml/min Est GFR ( Amer) ml/min Est GFR (Non-Af Amer) ml/min BUN/Creatinine Ratio (10-20) Glucose (70-99(Fasting)) mg/dl POC Glucose 159 H (70-99) mg/dl Calcium (8.5-10.1) mg/dl Magnesium (1.7-2.4) mg/dl PG Care Time/CCT Total # of Minutes Spent Total Time Spent with Patient: Total time spent is greater than 50% in coordination of care (as documented) at patient's floor/unit and/or counseling patient: Coding Level of Care Code 64534 Subseq Hosp Care Lvl 3 Diagnoses Neurogenic claudication due to lumbar spinal stenosis M48.062 Hyperlipidemia E78.5 Hypertension I10 Type 2 diabetes mellitus, with long-term current use of insulin E11.9; Z79.4 Bipolar 1 disorder F31.9 Chronic kidney disease (CKD), stage III (moderate) N18.3 Chronic interstitial cystitis N30.10 Rheumatoid arthritis M06.9
[2021-12-02 08:07] LABS: Hematocrit (blood only) 30.9 % (34.1-44.9); Hemoglobin 10.1 g/dl (12.0-16.0); Immature Granulocytes # (auto) 0.06 K/uL (0.00-0.02); Immature Granulocytes % (auto) 0.5 %; Lymphocytes % (auto) 7.8 %; Mean Corpuscular Hemoglobin 29.4 pg (25.0-34.0); Mean Corpuscular Hgb Conc 32.7 g/dL (32.0-36.0); Mean Corpuscular Volume 89.8 fL (80.0-100.0); Monocytes # (auto) 1.13 K/uL (0.24-0.82); Monocytes % (auto) 9.8 %; Neutrophils # (auto) 9.43 K/uL (1.4-6.5); Neutrophils % (auto) 81.9 %; Platelet Count 268 K/uL (130-400); RDW Standard Deviation 48.9 fL (36.4-46.3); Red Blood Count 3.44 M/uL (3.93-5.22); White Blood Count 11.52 K/ul (4.8-10.8)
[2021-12-02 08:35] LABS: BUN Creatinine Ratio 23.6 (10-20); Calcium 8.1 mg/dl (8.5-10.1); Creatinine Clr Calc Pharmacy 31.6 ml/min; Est GFR (African American) 35.7 ml/min; Est GFR (Non-African American) 30.8 ml/min; Magnesium 1.9 mg/dl (1.7-2.4); Potassium 5.1 mmol/L (3.5-5.1)
--- NOTE | 2021-12-02 08:47 | Pharmacy Report ---
Pharmacy Glycemic Short Note 2 - Date of Service December 02, 2021 - Glycemic Short BSG Results (Last 24 hours): 12/01/21 12/01/21 12/01/21 09:48 13:43 16:58 Glucose POC Glucose 127 H 159 H 169 H 12/01/21 12/02/21 12/02/21 21:47 07:35 08:28 Glucose 184 H POC Glucose 169 H 188 H OUTPATIENT ANTIDIABETIC REGIMEN: * Basaglar 34 units SC qPM * Fiasp SSI * Victoza 1.8 mg SC qPM HbA1c: 7.2% (09/23/21) ASSESSMENT: * CHAMP is a 81 year female POD #0 s/p L3-S1 decompression/fusion * No perioperative steroids given yesterday * Ordered ongoing steroids, dexamethasone 6 mg IV daily starting today for 3 days * Reasonably well-controlled T2DM as an outpatient with insulin and GLP-1 agonist * BSGs ranging 127-169 mg/dL yesterday * Fasting BSG of 188 mg/dL, likely due to reduced basal dose last evening * Will change basal to be given in AM with steroids * Unfortunately, lunch BSG of 342 mg/dL, will give IV insulin bolus and tighten Novolog further PLAN FOR INPATIENT GLYCEMIC CONTROL: * Hold GLP-1 agonist * Basal insulin * Lantus 35 units SQ daily (give with IV dexamethasone) * Lantus HS to provide 0-10 units (see EHR for details) * Bolus insulin * NovoLog per scale ACHS or Q6hrs while NPO * Goal Range: Low 110 mg/dL - High 140 mg/dL * Correction Factor: 15 mg/dL/unit * Nutritional / Prandial insulin per carb ratio of 1 unit per 5 grams CHO consumed
[2021-12-02] MEDS: INSULIN ASPART PER UNIT SC SCH ×4 (09:14→20:49)
[2021-12-02] MEDS: LANTUS PER UNIT CHARGE SQ SCH (09:15)
--- NOTE | 2021-12-02 10:04 | Orthopedic Progress Note ---
Date of Service December 02, 2021 Assessment & Plan (1) Neurogenic claudication due to lumbar spinal stenosis: Plan: At this time we will continue physical therapy monitor SELMA output. We will consider possible rehab placement. Admission and Anticipated Discharge Date Admission Date: December 01, 2021 Subjective Patient complaining of back pain but leg pain markedly improved Physical Exam Physical Exam: On exam she appears comfortable. She has good strength testing. Results & Data ([facility]) Vital Signs (Past 12 Hours) Vital Signs Temp Pulse Resp BP Pulse Ox O2 Del Method 12/02/21 07:24 36.8 C 64 18 107/64 98 Room Air 12/02/21 03:54 36.8 C 67 20 103/58 L 96 Room Air 12/01/21 22:34 36.7 C 68 18 100/63 97 Room Air
[2021-12-02] MEDS ORDERED: INSULIN HUMAN REGULAR PER UNIT 9 UNITS in SYRINGE 8.91 ML IV ONE (12:30)
[2021-12-02] MEDS ORDERED: LORATADINE 10 MG TAB PO ONE (12:32)
[2021-12-02] MEDS ORDERED: ALBUTEROL HFA 8 GM INHALER INH ONE (12:40)
[2021-12-02] MEDS ORDERED: SODIUM CHLORIDE 0.9% 500 ML IV SCH (12:45)
--- NOTE | 2021-12-02 14:32 | XRay Report ---
KUB HISTORY: Abdominal distention. eval ileus. Postop lumbar spinal fusion. COMPARISON: None. FINDINGS: Posterior decompression and fusion from L3 through S1 with pedicle screws and rods. The bhargavi dware appears intact. There is a surgical drain noted at the laminectomy sites. Distended gas and sto ol-filled colon. There are few mildly just dilated gas-filled loops of small bowel. There is a modera te to large amount well-formed stool seen throughout the colon. No renal calculi. No ureteral calcul i. No pneumoperitoneum or pneumatosis. IMPRESSION: Distended gas and stool-filled colon with a few mildly dilated gas-filled loops of small bowel. Findi ngs likely represent a combination of a postoperative ileus and constipation. ACT 112: Negative or not required by law. Electronically signed by: Jaswant Coyle M.D. 12/02/2021 2:31 PM
[2021-12-02 16:59] LABS: BUN Creatinine Ratio 21.9 (10-20); Calcium 8.8 mg/dl (8.5-10.1); Creatinine Clr Calc Pharmacy 26.5 ml/min; Est GFR (African American) 28.9 ml/min; Est GFR (Non-African American) 24.9 ml/min; Potassium 5.1 mmol/L (3.5-5.1)
[2021-12-02] MEDS: ASPIRIN 81 MG ECTAB PO SCH (19:55)
[2021-12-02] MEDS: CETIRIZINE HCL 10 MG TABLET PO SCH (19:56)
[2021-12-02] MEDS: ATORVASTATIN 20 MG TAB PO SCH (19:56)
[2021-12-02] MEDS: DOCUSATE SODIUM/SENNA 50/8.6MG TAB PO SCH (19:56)
[2021-12-02] MEDS: MIRABEGRON ER 25 MG TAB PO SCH (19:57)
[2021-12-02] MEDS ORDERED: LANTUS PER UNIT CHARGE SQ SCH (21:00)
[2021-12-03] MEDS: oxyCODONE HCL IR 5 MG TAB (IMMEDIATE RELEASE) PO PRN ×3 (05:26→20:34)
[2021-12-03] MEDS: POLYETHYLENE (MIRALAX) 17 GM PACK PO SCH ×3 (05:27→17:51)
[2021-12-03] MEDS ORDERED: SODIUM CHLORIDE 0.45 % 1,000 ML IV SCH (07:45)
[2021-12-03 07:56] LABS: Hematocrit (blood only) 30.1 % (34.1-44.9); Hemoglobin 9.6 g/dl (12.0-16.0); Mean Corpuscular Hemoglobin 29.3 pg (25.0-34.0); Mean Corpuscular Hgb Conc 31.9 g/dL (32.0-36.0); Mean Corpuscular Volume 91.8 fL (80.0-100.0); Mean Platelet Volume 10.8 fL (9.4-12.3); Platelet Count 233 K/uL (130-400); RDW Coefficient of Variation 14.8 % (11.5-14.5); RDW Standard Deviation 50.2 fL (36.4-46.3); Red Blood Count 3.28 M/uL (3.93-5.22); White Blood Count 11.29 K/ul (4.8-10.8)
[2021-12-03 08:22] LABS: Albumin Globulin Ratio 1.4 (0.9-2); Albumin Level 3.3 gm/dl (3.4-5.0); BUN Creatinine Ratio 27.3 (10-20); Bilirubin,Total 0.3 mg/dl (0.2-1.0); Calcium 8.4 mg/dl (8.5-10.1); Creatinine Clr Calc Pharmacy 32.2 ml/min; Est GFR (African American) 36.6 ml/min; Est GFR (Non-African American) 31.5 ml/min; Globulin 2.4 gm/dl (2.5-4.0); Magnesium 2.1 mg/dl (1.7-2.4); Potassium 4.5 mmol/L (3.5-5.1); Total Protein 5.7 gm/dl (6.0-8.3)
[2021-12-03 08:37] LABS: Ferritin 95.9 ng/ml (8-388)
--- NOTE | 2021-12-03 08:40 | Hospitalist Progress Note ---
Date of Service December 03, 2021 Assessment & Plan (1) Neurogenic claudication due to lumbar spinal stenosis: Plan: POD#2 s/p lumbar decompression-fusion procedure by Dr Sams 12/01 #1 lumbar decompression with bilateral medial facetectomies and foraminotomies L2-L3, L3-L4, L4-5 and L5-S1. #2 posterior spinal fusion L3-S1. #3 placement posterior segmental instrumentation L3-S1. #4 interbody fusion L4-5 L5-S1. #5 placement of Spira 11 x 26 mm cage at L4-L5 and L5-S1. #6 placement locally harvested morselized autograft in the posterior gutters. #7 placement of I factor model V toss in the interbody space and posterior gutters. EBL ~150cc per the op note., SELMA output 370cc H/h 11.1--> 10.1 --> 9.6, acute blood loss anemia from surgery/dilutional from IVF as additional IVF yesterday for MAI and hyperglycemia ordered will check iron studies/b12 w/ am labs given preop hgb 11.1, general pallor/fatigue --> Iron 16, trans% 6, TIBC wnl as well as unsaturated IBV. Ferritin 95.9. Although acute on chronic, consider dose of Venofer while inpatient. PATIENT REFUSING IV VENOFER TODAY, consider giving pending repeat hgb -- will leave to primary service based on labs in am if patient willing B12 pending -- low normal, placed on 500mcg daily can continue vs 1000mcg Cr 1.87 last evening, elevated BSGs Improved with IVF, Cr 1.57 (baseline 1.3-1.6 per nephro) resuming olmesartan for today Continue incentive spirometer, added Claritin QAM given xyzal and zrytec at home. Consider f/u allergy/immunology, suspect underlying reactive airway. albuterol HFA available prn 96% on RA and lungs improved on exam Pain control/bowel regimen/antiemetics per primary service. KUB ileus, moved bowels last evening, passing gas diet advanced back to DM/AHA DVT proph -- edgar mario, SCDs in place PT/OT -- possible rehab per patient, will see how she does over next 24 hours (2) Hyperlipidemia: Plan: continue lipitor 20mg daily (3) Hypertension: Plan: Improved, 120/71 Cr stable at baselined, resume olmesartan for this evening (4) Type 2 diabetes mellitus, with long-term current use of insulin: Plan: primary orthopedic team has consulted the Pharmacy glycemic team for management defer Rx to them a1c noted from 09/2021 at 7.2 BSGs elevated to 342 afternoon 12/02 at lunch time, had been having juice, banana and regular soda for some reason although she knows she shouldn't. BSGs improved since last evening, 112,120 on AM labs Rn to [facility] pharmacy with elevations, DM diet to be maintained, to avoid juices/regualr sodas got 9u regular insulin at lunch yesterday, refusing to let repeat BSG testing at times) (5) Bipolar 1 disorder: Plan: Cont Seroquel nightly appears to be under control at this time although does have some pressured speech (6) Chronic kidney disease (CKD), stage III (moderate): Plan: baseline Creatinine is 1.3 to 1.6 per nephrology notes holding arb for today, Cr 1.57 (although appears baseline actually 1.3-1.6 per nephro notes), K was 5.1 IVF provided, K 4.5 on am labs, BP stable Resume ARB for this evening, monitor BMP in am (7) Chronic interstitial cystitis: Plan: cont mirabegron daily also with "lower ovarian cramping", following [facility] (8) Rheumatoid arthritis: Plan: listed per the chart, but it does not appear she is on any chronic meds for such will clarify the diagnosis with patient during my next visit with her notes from Dr Meyers Jan 2021 in system with patient with inflammatory arthritis patient states had tried methotrexate in past, developed pneumonia has flares about 2x a year reported that she follows with PCP Dr Persaud and gets Medrol dose pack with improvement Mild abd bloating/discomfort - serial exams, watch for development of ileus --> does have + BS, although hypoactive 12/02, getting lots of pain meds and not much ambulation KUB with ileus + constipation, supp and enema, +BM encouraged ambulation advanced to regular diet, no further abx pain Monitor, encourage continued ambulation Plan DVT proph - SCDS; chemical means contraindicated due to spinal surgery Thank you for allowing hospitalist to participate in the care of Mrs Peng. Will sign off/check labs in am. Please call with questions/concerns. Admission and Anticipated Discharge Date Admission Date: December 01, 2021 Supervising Physician Co-Signing Physician Notes Attending Attestation - Chart reviewed, care plan d/w DEO Mathew. I agree w/ the nix components of her documentation. Jerad Winters MD Subjective Patient evaluated this morning. Liquid BM overnight, passing gas this morning. Pain present but controlled with ordered medications. She was frustrated about staff being busy after her fleets and required changing bed. States nutrition terrible as well. Breathing better from the claritin, allergy symptoms. patel removed yesterday, voiding without issue discussed iron studies -- She DOES NOT want IV venofer, constipation issues. discussed IV not as much issue with constipation but will hold off for now per patient's wishes No fever/chills, chest pain, shortness of breath, abdominal pain or nausea. Review of Systems Review of Systems: All systems reviewed & are unremarkable except as noted in HPI & below Physical Exam Physical Exam: General: WD/WN obese female sitting up in chair, NAD upon entry but complaints of back pain HEENT: eyes anicteric, mmm Resp: diminished throughout, but better air entry today, no rales, no wheezing, on room air SpO2 96% CV: RRR, no m/r/g, no edema/calf tenderness GI: , but soft, nontender, slightly hypoactive BS but improved, no guarding or rigidity MSK/Neuro: strength 5/5 throughout however pain with movement. dressing c/d/i, tender to palpation, SELMA drain with scant bloody drainage :NO FURTHER PATEL, reports voiding without issue Psych: AOx3, frustrated with busy staff/dietary Skin: no obvious rashes Results & Data Results & Data ([facility]) Vital Signs (Past 12 Hours) Vital Signs Temp Pulse Resp BP Pulse Ox O2 Del Method 12/03/21 07:31 Room Air 12/03/21 07:27 36.7 C 58 L 18 120/71 96 Room Air Laboratory Results 12/03/21 12/03/21 12/03/21 Range/Units 08:04 07:27 07:27 WBC (4.8-10.8) K/ul RBC (3.93-5.22) M/uL Hgb (12.0-16.0) g/dl Hct (34.1-44.9) % MCV (80.0-100.0) fL MCH (25.0-34.0) pg MCHC (32.0-36.0) g/dL RDW Std Deviation (36.4-46.3) fL RDW Coeff of Sam (11.5-14.5) % Plt Count (130-400) K/uL MPV (9.4-12.3) fL Sodium 136 (136-145) mmol/L Potassium 4.5 (3.5-5.1) mmol/L Chloride 108 H (98-107) mmol/L Carbon Dioxide 22 (21-32) mmol/L Anion Gap 6 (3-11) BUN 42 H (6-23) mg/dl Creatinine 1.54 H D (0.6-1.2) mg/dl Est Cr Clr Drug Dosing 32.2 ml/min Est GFR ( Amer) 36.6 ml/min Est GFR (Non-Af Amer) 31.5 ml/min BUN/Creatinine Ratio 27.3 H (10-20) Glucose 120 H (70-99(Fasting)) mg/dl POC Glucose 112 H (70-99) mg/dl Calcium 8.4 L (8.5-10.1) mg/dl Magnesium 2.1 (1.7-2.4) mg/dl Iron 16 L (35-150) mcg/dl TIBC 258 (250-450) mcg/dl Unsaturated IBC 242 (155-355) mcg/dl Transferrin % Sat 6 L (15-50) % Ferritin Pending Total Bilirubin 0.3 (0.2-1.0) mg/dl AST 16 (13-39) U/L ALT 18 (7-52) U/L Alkaline Phosphatase 41 (34-104) U/L Total Protein 5.7 L (6.0-8.3) gm/dl Albumin 3.3 L (3.4-5.0) gm/dl Globulin 2.4 L (2.5-4.0) gm/dl Albumin/Globulin Ratio 1.4 (0.9-2) Vitamin B12 Pending 12/03/21 12/02/21 12/02/21 Range/Units 07:27 20:40 17:15 WBC 11.29 H (4.8-10.8) K/ul RBC 3.28 L (3.93-5.22) M/uL Hgb 9.6 L (12.0-16.0) g/dl Hct 30.1 L (34.1-44.9) % MCV 91.8 (80.0-100.0) fL MCH 29.3 (25.0-34.0) pg MCHC 31.9 L (32.0-36.0) g/dL RDW Std Deviation 50.2 H (36.4-46.3) fL RDW Coeff of Sam 14.8 H (11.5-14.5) % Plt Count 233 (130-400) K/uL MPV 10.8 (9.4-12.3) fL Sodium (136-145) mmol/L Potassium (3.5-5.1) mmol/L Chloride (98-107) mmol/L Carbon Dioxide (21-32) mmol/L Anion Gap (3-11) BUN (6-23) mg/dl Creatinine (0.6-1.2) mg/dl Est Cr Clr Drug Dosing ml/min Est GFR ( Amer) ml/min Est GFR (Non-Af Amer) ml/min BUN/Creatinine Ratio (10-20) Glucose (70-99(Fasting)) mg/dl POC Glucose 170 H 76 (70-99) mg/dl Calcium (8.5-10.1) mg/dl Magnesium (1.7-2.4) mg/dl Iron (35-150) mcg/dl TIBC (250-450) mcg/dl Unsaturated IBC (155-355) mcg/dl Transferrin % Sat (15-50) % Ferritin Total Bilirubin (0.2-1.0) mg/dl AST (13-39) U/L ALT (7-52) U/L Alkaline Phosphatase (34-104) U/L Total Protein (6.0-8.3) gm/dl Albumin (3.4-5.0) gm/dl Globulin (2.5-4.0) gm/dl Albumin/Globulin Ratio (0.9-2) Vitamin B12 12/02/21 12/02/21 Range/Units 16:13 11:57 WBC (4.8-10.8) K/ul RBC (3.93-5.22) M/uL Hgb (12.0-16.0) g/dl Hct (34.1-44.9) % MCV (80.0-100.0) fL MCH (25.0-34.0) pg MCHC (32.0-36.0) g/dL RDW Std Deviation (36.4-46.3) fL RDW Coeff of Sam (11.5-14.5) % Plt Count (130-400) K/uL MPV (9.4-12.3) fL Sodium 138 (136-145) mmol/L Potassium 5.1 (3.5-5.1) mmol/L Chloride 109 H (98-107) mmol/L Carbon Dioxide 21 (21-32) mmol/L Anion Gap 8 (3-11) BUN 41 H (6-23) mg/dl Creatinine 1.87 H D (0.6-1.2) mg/dl Est Cr Clr Drug Dosing 26.5 ml/min Est GFR ( Amer) 28.9 ml/min Est GFR (Non-Af Amer) 24.9 ml/min BUN/Creatinine Ratio 21.9 H (10-20) Glucose 76 (70-99(Fasting)) mg/dl POC Glucose 342 H* (70-99) mg/dl Calcium 8.8 (8.5-10.1) mg/dl Magnesium (1.7-2.4) mg/dl Iron (35-150) mcg/dl TIBC (250-450) mcg/dl Unsaturated IBC (155-355) mcg/dl Transferrin % Sat (15-50) % Ferritin Total Bilirubin (0.2-1.0) mg/dl AST (13-39) U/L ALT (7-52) U/L Alkaline Phosphatase (34-104) U/L Total Protein (6.0-8.3) gm/dl Albumin (3.4-5.0) gm/dl Globulin (2.5-4.0) gm/dl Albumin/Globulin Ratio (0.9-2) Vitamin B12 PG Care Time/CCT Total # of Minutes Spent Total Time Spent with Patient: Total time spent is greater than 50% in coordination of care (as documented) at patient's floor/unit and/or counseling patient: Coding Level of Care Code 51228 Subseq Hosp Care Lvl 2 Diagnoses Neurogenic claudication due to lumbar spinal stenosis M48.062 Hyperlipidemia E78.5 Hypertension I10 Type 2 diabetes mellitus, with long-term current use of insulin E11.9; Z79.4 Bipolar 1 disorder F31.9 Chronic kidney disease (CKD), stage III (moderate) N18.3 Chronic interstitial cystitis N30.10 Rheumatoid arthritis M06.9
[2021-12-03] MEDS: dexAMETHasone 6 MG in SYRINGE 0 ML IV SCH (08:41)
--- NOTE | 2021-12-03 08:51 | Orthopedic Progress Note ---
Date of Service December 03, 2021 Assessment & Plan (1) Neurogenic claudication due to lumbar spinal stenosis: Plan: At this time we will continue physical therapy monitor SELMA output hopefully discharge home to rehab tomorrow. Admission and Anticipated Discharge Date Admission Date: December 01, 2021 Subjective Back pain controlled leg pain improved Physical Exam Physical Exam: Patient is good strength testing peers comfortable. Results & Data ([facility]) Vital Signs (Past 12 Hours) Vital Signs Temp Pulse Resp BP Pulse Ox O2 Del Method 12/03/21 07:31 Room Air 12/03/21 07:27 36.7 C 58 L 18 120/71 96 Room Air
[2021-12-03] MEDS: LORATADINE 10 MG TAB PO SCH (08:53)
[2021-12-03] MEDS: CHOLECALCIFEROL 1,000 UNITS 25 MCG TAB PO SCH (08:53)
[2021-12-03] MEDS: INSULIN ASPART PER UNIT SC SCH ×4 (10:29→21:45)
[2021-12-03] MEDS: LANTUS PER UNIT CHARGE SQ SCH (10:29)
[2021-12-03] MEDS: ACETAMINOPHEN 500 MG TAB PO PRN (12:39)
[2021-12-03] MEDS: ASPIRIN 81 MG ECTAB PO SCH (20:35)
[2021-12-03] MEDS: MIRABEGRON ER 25 MG TAB PO SCH (20:36)
[2021-12-03] MEDS: CETIRIZINE HCL 10 MG TABLET PO SCH (20:36)
[2021-12-03] MEDS: ATORVASTATIN 20 MG TAB PO SCH (20:36)
[2021-12-03] MEDS: DOCUSATE SODIUM/SENNA 50/8.6MG TAB PO SCH (20:37)
[2021-12-03] MEDS: OLMESARTAN MEDOXOMIL 5 MG TAB PO SCH (20:38)
[2021-12-04] MEDS: oxyCODONE HCL IR 5 MG TAB (IMMEDIATE RELEASE) PO PRN ×4 (05:37→23:42)
[2021-12-04] MEDS: POLYETHYLENE (MIRALAX) 17 GM PACK PO SCH ×5 (05:50→23:44)
[2021-12-04 07:29] LABS: Hematocrit (blood only) 28.6 % (34.1-44.9); Hemoglobin 9.5 g/dl (12.0-16.0); Mean Corpuscular Hemoglobin 29.4 pg (25.0-34.0); Mean Corpuscular Hgb Conc 33.2 g/dL (32.0-36.0); Mean Corpuscular Volume 88.5 fL (80.0-100.0); Mean Platelet Volume 11.1 fL (9.4-12.3); Platelet Count 260 K/uL (130-400); RDW Coefficient of Variation 14.7 % (11.5-14.5); RDW Standard Deviation 47.7 fL (36.4-46.3); Red Blood Count 3.23 M/uL (3.93-5.22); White Blood Count 10.92 K/ul (4.8-10.8)
[2021-12-04 08:01] LABS: BUN Creatinine Ratio 28.7 (10-20); Calcium 8.8 mg/dl (8.5-10.1); Est GFR (African American) 37.7 ml/min; Est GFR (Non-African American) 32.6 ml/min; Potassium 4.9 mmol/L (3.5-5.1)
[2021-12-04] MEDS: CYANOCOBALAMIN (B-12) 500 MCG TABLET PO SCH (09:05)
[2021-12-04] MEDS: CHOLECALCIFEROL 1,000 UNITS 25 MCG TAB PO SCH (09:05)
[2021-12-04] MEDS: INSULIN ASPART PER UNIT SC SCH ×4 (09:06→21:24)
[2021-12-04] MEDS: LORATADINE 10 MG TAB PO SCH (09:06)
[2021-12-04] MEDS: dexAMETHasone 6 MG in SYRINGE 0 ML IV SCH (09:07)
[2021-12-04 09:11] LABS: Appearance Urine Clear (Clear); Bacteria Urine Automated Negative (Negative); Bilirubin Urine Negative (Negative); Blood Urine Negative (Negative); Cast Urine Automated 0 /lpf (0-5); Color Urine Yellow; Glucose Urine UA Negative (Negative); Ketones Urine Negative (Negative); Leukocyte Esterase Urine Trace (Negative); Nitrite Urine Negative (Negative); Protein Urine Negative (Negative); RBC Urine Automated 0-4 /hpf (0-4); Specific Gravity Urine 1.012 (1.000-1.030); Urobilinogen Urine Negative (Negative); pH Urine 5.5 (4.5-7.5)
[2021-12-04] MEDS: LANTUS PER UNIT CHARGE SQ SCH (09:18)
--- NOTE | 2021-12-04 10:22 | Orthopedic Progress Note ---
Date of Service December 04, 2021 Assessment & Plan (1) Neurogenic claudication due to lumbar spinal stenosis: Plan: At this time she can continue with physical therapy. She is ready for discharge to rehab when a bed is available. Admission and Anticipated Discharge Date Admission Date: December 01, 2021 Subjective Patient's back pain is controlled. Leg pain improved. She is tolerating ambulation well. Physical Exam Physical Exam: On exam she is in bed at this time. She is comfortable. Is good strength testing. Results & Data ([facility]) Vital Signs (Past 12 Hours) Vital Signs Temp Pulse Resp BP BP Pulse Ox O2 Del Method 12/04/21 07:25 36.9 C 52 L 16 138/67 96 Room Air 12/03/21 22:27 36.8 C 67 20 154/70 H 98 Room Air
[2021-12-04] MEDS: cefTRIAXone SODIUM 2,000 MG in DEXTROSE 5% 50 ML IV SCH (13:28)
--- NOTE | 2021-12-04 16:00 | Hospitalist Progress Note ---
Date of Service December 04, 2021 Assessment & Plan (1) Neurogenic claudication due to lumbar spinal stenosis: Plan: s/p lumbar decompression-fusion procedure by Dr Sams 12/01 acute blood loss anemia from surgery/dilutional from IVF as additional IVF yesterday for MAI and hyperglycemia ordered Iron and B12 level checked and are low. Patient refused intravenous iron will supplement orally with both Chronic kidney disease stage III Continue incentive spirometer, added Claritin QAM given xyzal and zrytec at home. Consider f/u allergy/immunology, suspect underlying reactive airway. albuterol HFA available prn 96% on RA and lungs improved on exam Pain control/bowel regimen/antiemetics per primary service. KUB ileus, moved bowels last evening, passing gas diet advanced back to DM/AHA DVT proph -- TANA spanns in place PT/OT -- possible rehab per patient (2) Hyperlipidemia: Plan: continue lipitor 20mg daily (3) Hypertension: Plan: Improved, 120/71 Cr stable at baselined, resume olmesartan for this evening (4) Type 2 diabetes mellitus, with long-term current use of insulin: Plan: primary orthopedic team has consulted the Pharmacy glycemic team for management defer Rx to them a1c noted from 09/2021 at 7.2 BSGs elevated to 342 afternoon 12/02 at lunch time, had been having juice, banana and regular soda for some reason although she knows she shouldn't. BSGs improved since last evening, 112,120 on AM labs [facility]n to [facility] with elevations, DM diet to be maintained, to avoid juices/regualr sodas got 9u regular insulin at lunch yesterday, refusing to let repeat BSG testing at times) (5) Bipolar 1 disorder: Plan: Cont Seroquel nightly appears to be under control at this time although does have some pressured speech (6) Chronic kidney disease (CKD), stage III (moderate): Plan: baseline Creatinine is 1.3 to 1.6 per nephrology notes holding arb for today, Cr 1.57 (although appears baseline actually 1.3-1.6 per nephro notes), K was 5.1 IVF provided, K 4.5 on am labs, BP stable Resume ARB for this evening, monitor BMP in am (7) Chronic interstitial cystitis: Plan: cont mirabegron daily also with "lower ovarian cramping", following [employer] (8) Rheumatoid arthritis: Plan: listed per the chart, but it does not appear she is on any chronic meds for such will clarify the diagnosis with patient during my next visit with her notes from Dr Meyers Jan 2021 in system with patient with inflammatory arthritis patient states had tried methotrexate in past, developed pneumonia has flares about 2x a year reported that she follows with PCP Dr Persaud and gets Medrol dose pack with improvement Mild abd bloating/discomfort - serial exams, watch for development of ileus --> does have + BS, although hypoactive 12/02, getting lots of pain meds and not much ambulation KUB with ileus + constipation, supp and enema, +BM encouraged ambulation advanced to regular diet, no further abx pain Monitor, encourage continued ambulation Plan DVT proph - SCDS; chemical means contraindicated due to spinal surgery Thank you for allowing hospitalist to participate in the care of Mrs Peng. Will sign off/check labs in am. Please call with questions/concerns. Admission and Anticipated Discharge Date Admission Date: December 01, 2021 Subjective Patient's back pain is controlled. Leg pain improved. She is tolerating ambulation well. she has no new complatins Review of Systems Review of Systems: Mild distress and fatigue overall she has significant exertional deconditioning no headache, no visual changes no speech or swallowing issues no chest pain, pressure or palpitations no shortness of breath, cough or wheezes no abdominal pain, nausea or vomiting, diarrhea or constipation no dysuria, hematuria or frequency no focal joint pain or swelling Some nonradicular back pain post procedure no bruising, bleeding or rashes no focal signs of weakness or numbness or altered sensation no complaints of anxiety or depression.. Physical Exam Physical Exam: The patient appeared stable Vital signs as documented. Lungs are clear to auscultation and appear unlabored Cardiac exam, Rhythm is regular.. No murmurs, rubs or gallops. Abdominal exam reveals normal bowel sounds, soft non tender, no masses Extremities are nonedematous and both pedal pulses are normal. Neurologic exam is alert and oriented, no focal loss of strength or sensation Skin is without bruises or rashes her operative site was not inspected Psychologically is without concerns for anxiety or depression. Results & Data Results & Data ([facility]) Vital Signs (Past 12 Hours) Vital Signs Temp Pulse Resp BP Pulse Ox O2 Del Method 12/04/21 15:01 98.8 F 64 18 133/64 94 Room Air 12/04/21 09:30 Room Air 12/04/21 07:25 98.4 F 52 L 16 138/67 96 Room Air PG Care Time/CCT Total # of Minutes Spent Total Time Spent with Patient: Total time spent is greater than 50% in coordination of care (as documented) at patient's floor/unit and/or counseling patient: Coding Level of Care Code 04738 Subseq Hosp Care Lvl 2 Diagnoses Neurogenic claudication due to lumbar spinal stenosis M48.062 Hyperlipidemia E78.5 Hypertension I10 Type 2 diabetes mellitus, with long-term current use of insulin E11.9; Z79.4 Bipolar 1 disorder F31.9 Chronic kidney disease (CKD), stage III (moderate) N18.3 Chronic interstitial cystitis N30.10 Rheumatoid arthritis M06.9
[2021-12-04] MEDS: CETIRIZINE HCL 10 MG TABLET PO SCH (20:34)
[2021-12-04] MEDS: DOCUSATE SODIUM/SENNA 50/8.6MG TAB PO SCH (20:34)
[2021-12-04] MEDS: ASPIRIN 81 MG ECTAB PO SCH (20:34)
[2021-12-04] MEDS: OLMESARTAN MEDOXOMIL 5 MG TAB PO SCH (20:34)
[2021-12-04] MEDS: MIRABEGRON ER 25 MG TAB PO SCH (20:34)
[2021-12-04] MEDS: ATORVASTATIN 20 MG TAB PO SCH (20:34)
[2021-12-05] MEDS: oxyCODONE HCL IR 5 MG TAB (IMMEDIATE RELEASE) PO PRN ×4 (04:59→20:46)
[2021-12-05] MEDS: POLYETHYLENE (MIRALAX) 17 GM PACK PO SCH ×4 (05:00→23:10)
[2021-12-05] MEDS: ACETAMINOPHEN 500 MG TAB PO PRN ×2 (08:13→19:14)
[2021-12-05] MEDS: CYANOCOBALAMIN (B-12) 500 MCG TABLET PO SCH (08:15)
[2021-12-05] MEDS: CHOLECALCIFEROL 1,000 UNITS 25 MCG TAB PO SCH (08:15)
[2021-12-05] MEDS: FERROUS SULFATE 325 MG TAB PO SCH (08:15)
[2021-12-05] MEDS: LORATADINE 10 MG TAB PO SCH (08:15)
[2021-12-05] MEDS: INSULIN ASPART PER UNIT SC SCH ×4 (09:13→21:09)
--- NOTE | 2021-12-05 11:02 | Orthopedic Progress Note ---
Date of Service December 05, 2021 Assessment & Plan (1) Neurogenic claudication due to lumbar spinal stenosis: Plan: At this time encourage her to continue with ambulation as tolerated. We will discontinue her drain today. She is ready for discharge to rehab if a bed becomes available. Ultimately if she is turned down from rehab Home health may be warranted. Admission and Anticipated Discharge Date Admission Date: December 01, 2021 Subjective Patient's back pain is controlled leg pain improved. She is tolerating physical therapy and ambulating well. Physical Exam Physical Exam: On exam she is in the chair at the bedside. Is good strength testing. Results & Data ([facility]) Vital Signs (Past 12 Hours) Vital Signs Temp Pulse Resp BP Pulse Ox O2 Del Method 12/05/21 08:19 36.5 C 71 18 163/75 H 96 Room Air
[2021-12-05] MEDS: cefTRIAXone SODIUM 2,000 MG in DEXTROSE 5% 50 ML IV SCH (13:17)
[2021-12-05] MEDS: OLMESARTAN MEDOXOMIL 5 MG TAB PO SCH (20:43)
[2021-12-05] MEDS: MIRABEGRON ER 25 MG TAB PO SCH (20:43)
[2021-12-05] MEDS: ASPIRIN 81 MG ECTAB PO SCH (20:44)
[2021-12-05] MEDS: CETIRIZINE HCL 10 MG TABLET PO SCH (20:44)
[2021-12-05] MEDS: ATORVASTATIN 20 MG TAB PO SCH (20:44)
[2021-12-05] MEDS: DOCUSATE SODIUM/SENNA 50/8.6MG TAB PO SCH (20:44)
[2021-12-06] MEDS: oxyCODONE HCL IR 5 MG TAB (IMMEDIATE RELEASE) PO PRN ×4 (04:45→17:24)
[2021-12-06] MEDS: POLYETHYLENE (MIRALAX) 17 GM PACK PO SCH ×4 (05:19→23:06)
--- NOTE | 2021-12-06 08:06 | Orthopedic Progress Note ---
Date of Service December 06, 2021 Assessment & Plan (1) Neurogenic claudication due to lumbar spinal stenosis: Plan: Patient is stable postoperative day #5. We will continue GI DVT prophylaxis ambulation gait training. We will continue with pain control measures as well. When a bed is available would like to transfer her to group home. We will continue to follow her. Admission and Anticipated Discharge Date Admission Date: December 01, 2021 Subjective Patient is postop day #5 status post L3-S1 decompression and fusion. Pain is c ontrolled. No new complaints Physical Exam Physical Exam: On exam she is alert and oriented. Her dressing is clean dry and intact. SELMA drains been removed. Strength and sensation are grossly intact her calves are supple nontender Results & Data ([facility]) Vital Signs (Past 12 Hours) Vital Signs Temp Pulse Resp BP Pulse Ox O2 Del Method 12/05/21 22:25 37.6 C H 57 L 18 136/78 96 Room Air
[2021-12-06] MEDS: INSULIN ASPART PER UNIT SC SCH ×4 (08:42→20:41)
[2021-12-06] MEDS: CHOLECALCIFEROL 1,000 UNITS 25 MCG TAB PO SCH (08:43)
[2021-12-06] MEDS: LORATADINE 10 MG TAB PO SCH (08:43)
[2021-12-06] MEDS: CYANOCOBALAMIN (B-12) 500 MCG TABLET PO SCH (08:43)
[2021-12-06] MEDS: cefTRIAXone SODIUM 2,000 MG in DEXTROSE 5% 50 ML IV SCH (13:21)
[2021-12-06] MEDS: DOCUSATE SODIUM/SENNA 50/8.6MG TAB PO SCH (20:27)
[2021-12-06] MEDS: CETIRIZINE HCL 10 MG TABLET PO SCH (20:27)
[2021-12-06] MEDS: ASPIRIN 81 MG ECTAB PO SCH (20:27)
[2021-12-06] MEDS: MIRABEGRON ER 25 MG TAB PO SCH (20:27)
[2021-12-06] MEDS: OLMESARTAN MEDOXOMIL 5 MG TAB PO SCH (20:27)
[2021-12-06] MEDS: ATORVASTATIN 20 MG TAB PO SCH (20:27)
[2021-12-07] MEDS: oxyCODONE HCL IR 5 MG TAB (IMMEDIATE RELEASE) PO PRN ×5 (00:57→19:53)
[2021-12-07] MEDS: ALUMINUM/MAGNESIUM SUSP 30 ML UDC PO PRN (02:34)
[2021-12-07] MEDS: POLYETHYLENE (MIRALAX) 17 GM PACK PO SCH ×4 (05:57→23:25)
--- NOTE | 2021-12-07 08:43 | Orthopedic Progress Note ---
Date of Service December 07, 2021 Assessment & Plan (1) Neurogenic claudication due to lumbar spinal stenosis: Plan: At this time we are having difficulty with rehab placement. Tuesday I attempted to contact her insurance company. I was on hold for 30 to 40 minutes left them a contact number for which they have never returned the call. I reviewed this with the patient. She may need to consider home health. Hopefully something can be arranged and she can discharge tomorrow. Admission and Anticipated Discharge Date Admission Date: December 01, 2021 Subjective Patient complaining mostly of back pain but feels her legs symptoms are improved. She is tolerating physical therapy. Physical Exam Physical Exam: On exam she is in bed. She is constricted testing. Results & Data ([facility]) Vital Signs (Past 12 Hours) Vital Signs Temp Pulse Resp BP Pulse Ox O2 Del Method 12/07/21 07:40 37.4 C 66 16 133/74 95 Room Air
[2021-12-07] MEDS: FERROUS SULFATE 325 MG TAB PO SCH (09:32)
[2021-12-07] MEDS: CYANOCOBALAMIN (B-12) 500 MCG TABLET PO SCH (09:32)
[2021-12-07] MEDS: LORATADINE 10 MG TAB PO SCH (09:32)
[2021-12-07] MEDS: CHOLECALCIFEROL 1,000 UNITS 25 MCG TAB PO SCH (09:32)
[2021-12-07] MEDS: INSULIN ASPART PER UNIT SC SCH ×4 (09:34→21:13)
[2021-12-07] MEDS: LANTUS PER UNIT CHARGE SQ SCH (09:41)
[2021-12-07] MEDS: ACETAMINOPHEN 500 MG TAB PO PRN (13:10)
[2021-12-07] MEDS: cefTRIAXone SODIUM 2,000 MG in DEXTROSE 5% 50 ML IV SCH (13:22)
[2021-12-07] MEDS: CETIRIZINE HCL 10 MG TABLET PO SCH (19:53)
[2021-12-07] MEDS: ASPIRIN 81 MG ECTAB PO SCH (19:54)
[2021-12-07] MEDS: MIRABEGRON ER 25 MG TAB PO SCH (19:54)
[2021-12-07] MEDS: ATORVASTATIN 20 MG TAB PO SCH (19:54)
[2021-12-07] MEDS: OLMESARTAN MEDOXOMIL 5 MG TAB PO SCH (19:55)
[2021-12-07] MEDS: DOCUSATE SODIUM/SENNA 50/8.6MG TAB PO SCH (19:55)
[2021-12-08] MEDS: oxyCODONE HCL IR 5 MG TAB (IMMEDIATE RELEASE) PO PRN ×4 (00:07→18:01)
[2021-12-08] MEDS: POLYETHYLENE (MIRALAX) 17 GM PACK PO SCH ×3 (05:21→18:50)
[2021-12-08] MEDS: LANTUS PER UNIT CHARGE SQ SCH (08:39)
[2021-12-08] MEDS: CHOLECALCIFEROL 1,000 UNITS 25 MCG TAB PO SCH (08:40)
[2021-12-08] MEDS: CYANOCOBALAMIN (B-12) 500 MCG TABLET PO SCH (08:40)
[2021-12-08] MEDS: LORATADINE 10 MG TAB PO SCH (08:40)
[2021-12-08] MEDS: INSULIN ASPART PER UNIT SC SCH ×4 (08:43→20:48)
--- NOTE | 2021-12-08 10:46 | XRay Report ---
LEFT FOOT 3 VIEWS CLINICAL HISTORY: Atraumatic left foot pain. FINDINGS: The skeletal structures are osteopenic. No fracture is seen. Mild osteoarthritic change is noted at the first metatarsophalangeal joint. Osteoarthritic change is also seen at the tarsometatars al articulations. There are tiny dorsal and large plantar heel spurs. Degenerative spurring is seen a long the dorsal aspect of the tarsal bones. There is mild calcification of the Achilles tendon and pl beltran fascia. The overlying soft tissues are within normal limits. IMPRESSION: 1. No acute bony abnormality is identified. 2. Osteopenia, mild degenerative change, and heel spurs as above Electronically signed by: Sean Branch M.D. 12/08/2021 10:45 AM
--- NOTE | 2021-12-08 12:27 | Orthopedic Progress Note ---
Date of Service December 08, 2021 Assessment & Plan (1) Neurogenic claudication due to lumbar spinal stenosis: Plan: Unfortunately we are unable to get her into a rehab facility secondary to her insurance. We will attempt a SNF. X-rays of the left foot do not demonstrate any fracture. I encouraged her to undergo as much therapy as possible and hopefully be transferred to a SNF in the next day or so. Admission and Anticipated Discharge Date Admission Date: December 01, 2021 Subjective Patient planing of left foot pain. She states the symptoms began last evening. She is concerned it is fractured. She denies any trauma fall or event that may precipitated this pain. Physical Exam Physical Exam: On exam she is in bed. She is exquisite tenderness to palpation of the left foot. Left foot is without ecchymosis swelling or erythema. Results & Data ([facility]) Vital Signs (Past 12 Hours) Vital Signs Temp Pulse Resp BP Pulse Ox 12/08/21 07:12 37.1 C 79 16 132/62 93
[2021-12-08] MEDS: cefTRIAXone SODIUM 2,000 MG in DEXTROSE 5% 50 ML IV SCH (12:52)
--- NOTE | 2021-12-08 14:21 | Pharmacy Report ---
Pharmacy Glycemic Short Note 2 - Date of Service December 08, 2021 - Glycemic Short BSG Results (Last 24 hours): 12/07/21 12/07/21 12/07/21 15:26 17:15 21:01 POC Glucose 106 H 77 200 H 12/08/21 12/08/21 12/08/21 00:14 08:03 12:16 POC Glucose 183 H 190 H 213 H OUTPATIENT ANTIDIABETIC REGIMEN: * Basaglar 34 units SC qPM * Fiasp SSI * Victoza 1.8 mg SC qPM HbA1c: 7.2% (09/23/21) ASSESSMENT: * Patient's BSGs yesterday were 744-369-61-200 mg/dL. Fasting today is 190 mg/dL. * Patient received 30 units of insulin yesterday (10 units of basal and 20 units of bolus). * Continue Lantus 10 units daily. Scale for tomorrow if BSGs do not respond. * Loosen CF as patient overcorrects. Tighten CR as BSGs trend upwards once patient is in range. Background * LS is a 81 year female POD #0 s/p L3-S1 decompression/fusion * No perioperative steroids given yesterday * Ordered ongoing steroids, dexamethasone 6 mg IV daily starting today for 3 days * Reasonably well-controlled T2DM as an outpatient with insulin and GLP-1 agonist * BSGs ranging 127-169 mg/dL yesterday * Fasting BSG of 188 mg/dL, likely due to reduced basal dose last evening * Will change basal to be given in AM with steroids * Unfortunately, lunch BSG of 342 mg/dL, will give IV insulin bolus and tighten Novolog further PLAN FOR INPATIENT GLYCEMIC CONTROL: * Hold GLP-1 agonist * Basal insulin * Lantus 10 units daily (15 units if BSG > 150 mg/dL) * Bolus insulin * NovoLog per scale ACHS or Q6hrs while NPO * Goal Range: Low 110 mg/dL - High 140 mg/dL * Correction Factor: 35 mg/dL/unit * Nutritional / Prandial insulin per carb ratio of 1 unit per 8 grams CHO consumed
[2021-12-08] MEDS: DOCUSATE SODIUM/SENNA 50/8.6MG TAB PO SCH (20:20)
[2021-12-08] MEDS: MIRABEGRON ER 25 MG TAB PO SCH (20:20)
[2021-12-08] MEDS: ASPIRIN 81 MG ECTAB PO SCH (20:20)
[2021-12-08] MEDS: CETIRIZINE HCL 10 MG TABLET PO SCH (20:20)
[2021-12-08] MEDS: OLMESARTAN MEDOXOMIL 5 MG TAB PO SCH (20:20)
[2021-12-08] MEDS: ATORVASTATIN 20 MG TAB PO SCH (20:20)
[2021-12-09] MEDS: POLYETHYLENE (MIRALAX) 17 GM PACK PO SCH ×5 (00:01→23:21)
[2021-12-09] MEDS: oxyCODONE HCL IR 5 MG TAB (IMMEDIATE RELEASE) PO PRN ×3 (05:48→19:51)
[2021-12-09] MEDS: CYANOCOBALAMIN (B-12) 500 MCG TABLET PO SCH (08:50)
[2021-12-09] MEDS: LORATADINE 10 MG TAB PO SCH (08:50)
[2021-12-09] MEDS: CHOLECALCIFEROL 1,000 UNITS 25 MCG TAB PO SCH (08:51)
[2021-12-09] MEDS: FERROUS SULFATE 325 MG TAB PO SCH (08:51)
[2021-12-09] MEDS: INSULIN ASPART PER UNIT SC SCH ×4 (08:57→21:20)
[2021-12-09] MEDS: LANTUS PER UNIT CHARGE SQ SCH (08:57)
--- NOTE | 2021-12-09 14:26 | Orthopedic Progress Note ---
Date of Service December 09, 2021 Assessment & Plan (1) Neurogenic claudication due to lumbar spinal stenosis: Plan: At this time encourage her to continue with physical therapy as tolerated. She seems hesitant to do so. We will continue to try to get her placement in a assisted. Admission and Anticipated Discharge Date Admission Date: December 01, 2021 Subjective Patient complaining of back pain after completing physical therapy. She is very frustrated with her current situation and not being able to go to rehab. Physical Exam Physical Exam: On exam she appears very comfortable. She is neurologically intact. Results & Data ([facility]) Vital Signs (Past 12 Hours) Vital Signs Temp Pulse Resp BP Pulse Ox O2 Del Method 12/09/21 09:00 Room Air 12/09/21 07:51 37.1 C 79 16 129/66 93
--- NOTE | 2021-12-09 15:08 | Pharmacy Report ---
Pharmacy Glycemic Short Note 2 - Date of Service December 09, 2021 - Glycemic Short BSG Results (Last 24 hours): 12/08/21 12/08/21 12/09/21 17:06 20:33 08:12 POC Glucose 161 H 199 H 184 H 12/09/21 12:09 POC Glucose 240 H OUTPATIENT ANTIDIABETIC REGIMEN: * Basaglar 34 units SC qPM * Fiasp SSI * Victoza 1.8 mg SC qPM HbA1c: 7.2% (09/23/21) ASSESSMENT: 12/09: * Patient received total 26 units of insulin yesterday: 10 units basal + 16 units bolus. * Fasting BSG = 184 mg/dl. Patient received 15 units of basal today AM per scale. * Novolog CF/CR was tightened this AM but pre-lunch BSG trended up to 240 mg/dl. Expect BSGs to trend down this evening with higher basal and bolus dosing. She may need tighter Novolog coverage in AM to prevent the high BSG at lunch. Plan to change tomorrow. 12/08/21: * Patient's BSGs yesterday were [phone] mg/dL. Fasting today is 190 mg/dL. * Patient received 30 units of insulin yesterday (10 units of basal and 20 units of bolus). * Continue Lantus 10 units daily. Scale for tomorrow if BSGs do not respond. * Loosen CF as patient overcorrects. Tighten CR as BSGs trend upwards once patient is in range. Background * LS is a 81 year female POD #0 s/p L3-S1 decompression/fusion * No perioperative steroids given yesterday * Ordered ongoing steroids, dexamethasone 6 mg IV daily starting today for 3 days * Reasonably well-controlled T2DM as an outpatient with insulin and GLP-1 agonist * BSGs ranging 127-169 mg/dL yesterday * Fasting BSG of 188 mg/dL, likely due to reduced basal dose last evening * Will change basal to be given in AM with steroids * Unfortunately, lunch BSG of 342 mg/dL, will give IV insulin bolus and tighten Novolog further PLAN FOR INPATIENT GLYCEMIC CONTROL: * Hold GLP-1 agonist * Basal insulin * Lantus 15 units SQ today AM for BSG > 150 mg/dL * Bolus insulin: tightened CF/CR * NovoLog per scale ACHS or Q6hrs while NPO * Goal Range: Low 110 mg/dL - High 140 mg/dL * Correction Factor: 30 mg/dL/unit * Nutritional / Prandial insulin per carb ratio of 1 unit per 7 grams CHO consumed
[2021-12-09] MEDS: OLMESARTAN MEDOXOMIL 5 MG TAB PO SCH (21:12)
[2021-12-09] MEDS: MIRABEGRON ER 25 MG TAB PO SCH (21:12)
[2021-12-09] MEDS: ASPIRIN 81 MG ECTAB PO SCH (21:13)
[2021-12-09] MEDS: DOCUSATE SODIUM/SENNA 50/8.6MG TAB PO SCH (21:13)
[2021-12-09] MEDS: CETIRIZINE HCL 10 MG TABLET PO SCH (21:13)
[2021-12-09] MEDS: ATORVASTATIN 20 MG TAB PO SCH (21:13)
[2021-12-10] MEDS: POLYETHYLENE (MIRALAX) 17 GM PACK PO SCH ×3 (06:04→17:56)
[2021-12-10] MEDS: LORATADINE 10 MG TAB PO SCH (09:09)
[2021-12-10] MEDS: LANTUS PER UNIT CHARGE SQ SCH (09:09)
[2021-12-10] MEDS: CHOLECALCIFEROL 1,000 UNITS 25 MCG TAB PO SCH (09:09)
[2021-12-10] MEDS: CYANOCOBALAMIN (B-12) 500 MCG TABLET PO SCH (09:09)
[2021-12-10] MEDS: INSULIN ASPART PER UNIT SC SCH ×4 (09:10→21:44)
[2021-12-10] MEDS: oxyCODONE HCL IR 5 MG TAB (IMMEDIATE RELEASE) PO PRN (12:55)
[2021-12-10] MEDS: ASPIRIN 81 MG ECTAB PO SCH (21:45)
[2021-12-10] MEDS: DOCUSATE SODIUM/SENNA 50/8.6MG TAB PO SCH (21:45)
[2021-12-10] MEDS: MIRABEGRON ER 25 MG TAB PO SCH (21:46)
[2021-12-10] MEDS: ATORVASTATIN 20 MG TAB PO SCH (21:46)
[2021-12-10] MEDS: CETIRIZINE HCL 10 MG TABLET PO SCH (21:47)
[2021-12-10] MEDS: OLMESARTAN MEDOXOMIL 5 MG TAB PO SCH (21:47)
[2021-12-11] MEDS: POLYETHYLENE (MIRALAX) 17 GM PACK PO SCH ×2 (01:52→05:38)
[2021-12-11] MEDS: LORATADINE 10 MG TAB PO SCH (08:05)
[2021-12-11] MEDS: CYANOCOBALAMIN (B-12) 500 MCG TABLET PO SCH (08:05)
[2021-12-11] MEDS: CHOLECALCIFEROL 1,000 UNITS 25 MCG TAB PO SCH (08:06)
[2021-12-11] MEDS: FERROUS SULFATE 325 MG TAB PO SCH (08:06)
[2021-12-11] MEDS ORDERED: LANTUS PER UNIT CHARGE SQ SCH (09:00)
[2021-12-11] MEDS: LANTUS PER UNIT CHARGE SQ SCH (09:38)
[2021-12-11] MEDS: INSULIN ASPART PER UNIT SC SCH (09:38)
[2021-12-11] MEDS: ALUMINUM/MAGNESIUM SUSP 30 ML UDC PO PRN (11:11)
== END 2021-12-11 11:29 | DRG 454 ==
LOC: ASU 09:07 → 3W 13:25